=== PATIENT | female | born 1985 | race Caucasian/White ===

== ENCOUNTER 2016-07-28 13:07 | Emergency (ER) | payer MEDICAID ==
[~2016-07-28] VITALS: Ht 167.6 cm; Wt 85.6 kg
[~2016-07-28 13:07] MED LIST: ALBU2.5V2 AEROSOL; AMIT100T2 PO; AZIT250T6 PO; CEPH-583 PO; CETI-115 PO; CLON0.5T23 PO; FLUC150T5 PO; FLUT16SP EA NOSTRIL; FLUT1DIS5 ORAL INH; IPRA3AMP INH; LAMO100T12 PO; METH4TAB3 PO; MONT10TA22 PO; OMEP-122 PO; PRAZ1CAP5 PO; PRED20TA PO
[2016-07-28 13:10] VITALS: Ht 167.6 cm; Wt 85.6 kg
--- OUTSIDE RECORDS SUMMARY | 2016-07-28 13:11 | XMS REPORT ---
Author Ita Kessler [facility] eClinicalWorks Address Unknown Phone Unavailable Care Team Providers Care Design Printing Machine Setter Name Role Phone Ita Stearns CP Unavailable Allergies, Adverse Reactions, Alerts Substance Reaction Event Type Sulfa Info Not Available Drug Allergy Problems Problem Type Condition ICD-9 Code Onset Dates Condition Status Problem Dysthymic disorder 300.4 Active Problem Panic disorder without agoraphobia 300.01 Active Problem Posttraumatic stress disorder 309.81 Active Assessment Panic disorder without agoraphobia 300.01 Active Assessment Posttraumatic stress disorder 309.81 Active Assessment Dysthymic disorder 300.4 Active Medications Medication Code System Code Instructions Start Date End Date Status Dosage Fluconazole [facility] [address]-68 100 MG Orally Once a day 1 tablet Omeprazole [facility] [address]-68 20 MG Orally Once a day 1 capsule Nasonex [facility] [address]-96 50 MCG/ACT Nasally twice a day 2 sprays in each nostril Lamotrigine [facility] [address]-88 100 MG Orally Twice a day July 11, 2014 1 tablet Zyrtec Allergy [facility] [address]-25 10 MG Orally Once a day 1 tablet Prednisone [facility] 0 Oral 1 tab Advair Diskus [facility] [address]-03 500-50 MCG/DOSE Inhalation Twice a day 1 puff Albuterol Sulfate HFA [facility] [address]-90 108 (90 Base) MCG/ACT Inhalation every 4 hrs 2 puffs as needed Tussin [facility] 85061-43277 100 MG/5ML Orally every 4 hrs 10 ml as needed Montelukast Sodium [facility] [address]-67 10 MG Orally Once a day 1 tablet in the evening Fluticasone Propionate [facility] [address]-08 50 MCG/ACT Nasally Once a day 1 spray in each nostril Amitriptyline HCl [facility] [address]-34 100 MG Orally at bedtime October 03, 2014 1 tablet Prazosin HCl [facility] [address]-98 1 MG Orally at bedtime as needed for sleep July 11, 2014 2-3 capsules Qvar [facility] [address]-86 80 MCG/ACT Inhalation Twice a day 1 puff Topiramate [facility] [address]-03 25 MG Orally Once a day 1 tablet at bedtime Clonazepam [facility] [address]-24 0.5 MG Orally up to twice a day as needed for anxiety December 06, 2015 1 tablet Procedures Procedure Coding System Code Date OFFICE VISIT, EST-MOD. COMPLEXITY (25 MIN) CPT-4 09630 Dec 26, 2014 Vital Signs Date/Time: Dec 26, 2014 Height 64.75 in Weight 187.12 lbs Temperature 98.0 F Blood Pressure Diastolic 80 mm Hg Blood Pressure Systolic 120 mm Hg Cardiac Monitoring Heart Rate 82 /min BMI 31.38 Index Respiratory Rate 18 /min Results No Known Results Summary Purpose eClinicalWorks Submission
--- OUTSIDE RECORDS SUMMARY | 2016-07-28 13:11 | XMS REPORT | Continuity of Care Document ---
Author Author [facility] Organization [facility] Address Unknown Phone Unavailable Care Team Providers Care Bilingual Trainer Name Role Phone ASHLY MEAD MD Primary Care Physician [phone] Insurance Providers Payer Name Policy Number Subscriber Name Relationship [facility] [id number] Constance Sandra 19 Self Problems Medical Problems Problem Onset Date Status Right upper quadrant abdominal pain Unknown Active Cystitis Unknown Active Right upper quadrant abdominal pain Unknown Active Medications Medication Dose Route Sig Days/Qty Instructions Order Date Discontinued Date Status Albuterol 11/02/10 Active Alprazolam 2 Mg PO NEEDED 11/02/10 Active Hydrocodone/Acetaminophen 1-2 Tab PO Every 6 Hours PRN PAIN 6 Qty 03/10 Active Social History Social History Problem Response Recorded Date/Time Smoking Status Never smoker 03/10/2014 6:10pm Chewing Tobacco Status No 03/10/2014 6:10pm Hx Substance Use No 03/10/2014 6:10pm Hx Alcohol Use Y OCCASIONAL 03/10/2014 6:10pm Hospital Discharge Instructions No hospital discharge instructions. Plan of Care No plan of care. Functional Status Query Response Date Recorded Physical Hygiene Self March 10, 2014 6:10pm Disabilities None March 10, 2014 6:10pm Devices Used None March 10, 2014 6:10pm Dressing Self March 10, 2014 6:10pm Ambulation Self March 10, 2014 6:10pm Diet Self March 10, 2014 6:10pm Mental Status Alert March 10, 2014 9:05pm Disabilities None March 10, 2014 6:10pm Devices Used None March 10, 2014 6:10pm Physical Hygiene Self March 10, 2014 6:10pm Dressing Self March 10, 2014 6:10pm Ambulation Self March 10, 2014 6:10pm Diet Self March 10, 2014 6:10pm Allergies, Adverse Reactions, Alerts Allergen Type Severity Reaction Status Last Updated Sulfa (Sulfonamide Antibiotics) Allergy Unknown Active 03/10/14 Immunizations Name Given Type Hx Influenza Vaccination Y 02/07 Historical Hx Pneumococcal Vaccination Yes Historical Hx Influenza Vaccination Y 02/07 Historical Vital Signs Acute Vital Signs Vital Response Date/Time Temperature (Fahrenheit) 97.2 deg F (96.8 - 99.1) Temperature (Calculated Celsius) 36.84440 degrees C (36.0 - 37.3) Pulse Rate (adult) 82 bpm (60 - 100) Respiratory Rate 16 breaths/min (10 - 20) O2 Sat by Pulse Oximetry 96 % (90 - 100) Oxygen Flow Rate Blood Pressure 130/75 mm Hg Height 5 ft 6 in Weight 209 lb Body Mass Index 33.0 kg/m^2 Results Test Source Date Result Interp. Ref. Range Comments Alanine Aminotransferase (ALT/SGPT) March 10, 2014 6:09pm 97 U/L H 9- 52 Albumin March 10, 2014 6:09pm 4.3 G/DL N 3.5-5.0 Albumin/Globulin Ratio March 10, 2014 6:09pm 1.4 RATIO N 1.1-2.2 Alkaline Phosphatase March 10, 2014 6:09pm 114 U/L N 38-126 Anion Gap March 10, 2014 6:09pm 12 MEQ/L N 5-15 Aspartate Amino Transf (AST/SGOT) March 10, 2014 6:09pm 58 U/L H 14- 36 BUN/Creatinine Ratio March 10, 2014 6:09pm 20 RATIO N 6-26 Basophils # (Auto) March 10, 2014 6:09pm 0.1 T/MM3 N 0-0.2 Basophils (%) (Auto) March 10, 2014 6:09pm 1.0 % N 0-2 Blood Urea Nitrogen March 10, 2014 6:09pm 14.0 MG/DL N 7-17 Calcium Level March 10, 2014 6:09pm 9.5 MG/DL N 8.4-10.2 Calculated Osmolality March 10, 2014 6:09pm 268 MOSM/KG N 261-280 Carbon Dioxide Level March 10, 2014 6:09pm 25 MEQ/L N 22-30 Chloride Level March 10, 2014 6:09pm 102 MEQ/L N 98-107 Creatinine March 10, 2014 6:09pm 0.7 MG/DL N 0.7-1.2 Eosinophils # (Auto) March 10, 2014 6:09pm 0.4 T/MM3 N 0-0.5 Eosinophils (%) (Auto) March 10, 2014 6:09pm 4.0 % N 0-4 Globulin March 10, 2014 6:09pm 3.1 G/DL N 2.4-3.6 Glucose Level March 10, 2014 6:09pm 88 MG/DL N 65-110 Hematocrit March 10, 2014 6:09pm 45.5 % N 36-46 Hemoglobin March 10, 2014 6:09pm 15.3 GM/DL N 12-16 Human Chorionic Gonadotropin, Qual November 02, 2010 2:30am Negative - Lipase March 10, 2014 6:09pm 37 U/L N 23-300 Lymphocytes # (Auto) March 10, 2014 6:09pm 2.7 T/MM3 N 1-4.8 Lymphocytes (%) (Auto) March 10, 2014 6:09pm 30.4 % N 23-45 Mean Corpuscular Hemoglobin March 10, 2014 6:09pm 30.2 UUG N 26-34 Mean Corpuscular Hemoglobin Concent March 10, 2014 6:09pm 33.6 GM/DL N 31-37 Mean Corpuscular Volume March 10, 2014 6:09pm 89.9 UM3 N 80-100 Mean Platelet Volume March 10, 2014 6:09pm 10.7 UM3 N 9.4-12.4 Monocytes # (Auto) March 10, 2014 6:09pm 0.7 T/MM3 N 0-0.8 Monocytes (%) (Auto) March 10, 2014 6:09pm 7.6 % N 0-9.0 Neutrophils # (Auto) March 10, 2014 6:09pm 5.1 T/MM3 N 1.8-7.7 Neutrophils (%) (Auto) March 10, 2014 6:09pm 56.8 % N 33-66 Platelet Count March 10, 2014 6:09pm 265 T/MM3 N 130-400 Potassium Level March 10, 2014 6:09pm 3.9 MEQ/L N 3.6-5 RDW Standard Deviation March 10, 2014 6:09pm 41.1 FL N 36.9-50.2 Red Blood Count March 10, 2014 6:09pm 5.06 M/MM3 N 4.00-5.20 Sodium Level March 10, 2014 6:09pm 139 MEQ/L N 134-144 Total Bilirubin March 10, 2014 6:09pm 0.50 MG/DL N 0.20-1.30 Total Protein March 10, 2014 6:09pm 7.4 G/DL N 6.3-8.2 Urine Bilirubin March 10, 2014 3:40pm Negative - Has specimen been collected/obtained? Y Urine Blood March 10, 2014 3:40pm Negative - Has specimen been collected/obtained? Y Urine Collection Type March 10, 2014 3:40pm Voided-not cc-midstr - Has specimen been collected/obtained? Y Urine Color March 10, 2014 3:40pm Yellow - Has specimen been collected/obtained? Y Urine Glucose (UA) March 10, 2014 3:40pm Negative - Has specimen been collected/obtained? Y Urine Ketones March 10, 2014 3:40pm Negative - Has specimen been collected/obtained? Y Urine Leukocyte Esterase March 10, 2014 3:40pm Negative - Has specimen been collected/obtained? Y Urine Nitrite March 10, 2014 3:40pm Negative - Has specimen been collected/obtained? Y Urine Protein March 10, 2014 3:40pm Negative - Has specimen been collected/obtained? Y Urine Specific [place] March 10, 2014 3:40pm 1.015 - Has specimen been collected/obtained? Y Urine Turbidity March 10, 2014 3:40pm Sl cloudy - Has specimen been collected/obtained? Y Urine Urobilinogen March 10, 2014 3:40pm 0.2 EU/DL - Has specimen been collected/obtained? Y Urine pH March 10, 2014 3:40pm 6.0 - Has specimen been collected/ obtained? Y White Blood Count March 10, 2014 6:09pm 9.0 T/MM3 N 4.5-11.0 Chemistry Specimen Hemolysis March 10, 2014 6:09pm < 15 0-25 0-25 : No Hemolysis.26-70: Slight Hemolysis - can falsely elevate K and Urine Protein. 71-285: Moderate Hemolysis - can falsely elevate K, Troponin I, CA 19-9, PTH, CSF GLucose, and Urine Protein, and can falsely decrease Phenytoin. 286-999: Gross Hemolysis - can falsely elevate K, Troponin I, CA 19-9, PTH, CSF Glucose, and Urine Protine, and can falsely decrease Phenytoin. Recommend specimen recollection. Urinalysis Comment March 10, 2014 3:40pm Microscopic not ind. - Has specimen been collected/obtained? Y Turbidity March 10, 2014 6:09pm < 20 0-20 Glomerular Filtration Rate Calc March 10, 2014 6:09pm 100 - Immature Granulocyte # (Auto) March 10, 2014 6:09pm 0.02 T/MM3 N 0.00 -0.03 Immature Granulocyte % (Auto) March 10, 2014 6:09pm 0.2 % N 0.0-0.5 Icterus Index March 10, 2014 6:09pm < 2 0-7 Urine Microscopic Not Indicated November 02, 2010 5:29am Not indicated - Has specimen been collected/obtained? Y Blood Culture Blood November 02, 2010 2:30am Propionibacterium Acnes Procedures No known history of procedures. Encounters Encounter Location Date/Time Departed Emergency Room [facility] 03/10/14 3:19pm Recent Diagnosis
--- OUTSIDE RECORDS SUMMARY | 2016-07-28 13:11 | XMS REPORT ---
Author Author Homer Aldridge [facility] eClinicalWorks Address Unknown Phone Unavailable Care Team Providers Care Molding Manager Name Role Phone Homer Aldridge CP Unavailable Allergies No Known Allergies Problems Problem Type Condition Code Onset Dates Condition Status Problem Dysthymic disorder F34.1 Active Problem Panic disorder [episodic paroxysmal anxiety] without agoraphobia F41.0 Active Problem Post-traumatic stress disorder, chronic F43.12 Active Medications Medication Code System Code Instructions Start Date End Date Status Dosage Clonazepam [facility] [address]-50 0.5 MG Orally up to twice a day as needed for anxiety Jul 05, 2016 1 tablet Results No Known Results Summary Purpose eClinicalWorks Submission
--- OUTSIDE RECORDS SUMMARY | 2016-07-28 13:11 | XMS REPORT ---
Author Author Homer Aldridge [facility] eClinicalWorks Address Unknown Phone Unavailable Care Team Providers Care Animal Cop Name Role Phone Homer Aldridge CP Unavailable Allergies, Adverse Reactions, Alerts Substance Reaction Event Type Sulfa Info Not Available Drug Allergy Seasonal allergies Info Not Available Non Drug Allergy Problems Problem Type Condition Code Onset Dates Condition Status Problem Dysthymic disorder F34.1 Active Problem Panic disorder [episodic paroxysmal anxiety] without agoraphobia F41.0 Active Problem Post-traumatic stress disorder, chronic F43.12 Active Assessment Dysthymic disorder F34.1 Active Assessment Post-traumatic stress disorder, chronic F43.12 Active Medications Medication Code System Code Instructions Start Date End Date Status Dosage Prazosin HCl [facility] [address]-26 1 MG Orally at bedtime as needed for sleep July 11, 2014 2-3 capsules Fluconazole [facility] [address]-65 100 MG Orally Once a day, as needed 1 tablet Zyrtec Allergy [facility] [address]-40 10 MG Orally Once a day 1 tablet Prednisone [facility] 0 Oral 1 tab Advair Diskus [facility] [address]-05 500-50 MCG/DOSE Inhalation Twice a day 1 puff Montelukast Sodium [facility] [address]-41 10 MG Orally Once a day 1 tablet in the evening Albuterol Sulfate HFA [facility] [address]-00 108 (90 Base) MCG/ACT Inhalation every 4 hrs 2 puffs as needed Fluticasone Propionate [facility] [address]-06 50 MCG/ACT Nasally Once a day 1 spray in each nostril Tussin [facility] [address] 100 MG/5ML Orally every 4 hrs 10 ml as needed Spiriva Respimat [facility] [address]-92 2.5mcg nasal daily Jan 21, 2016 as directed Spiriva Respimat [facility] [address]-13 2.5mcg nasal daily not defined Nasonex [facility] [address]-68 50 MCG/ACT Nasally twice a day 2 sprays in each nostril Lamotrigine [facility] [address]-71 100 MG Orally as directed July 11, 2014 1 tablet in the AM and 1 1/2 tablets at bedtime Clonazepam [facility] [address]-41 0.5 MG Orally up to twice a day as needed for anxiety Jul 05, 2016 1 tablet Omeprazole [facility] [address]-05 20 MG Orally Once a day 1 capsule Procedures Procedure Coding System Code Date OFFICE VISIT, EST-LOW COMPLEXITY (15 MIN.) CPT-4 80720 Jan 19, 2016 Vital Signs Date/Time: Jan 19, 2016 Temperature 97.7 F Height 64.75 in Weight 205 lbs Blood Pressure Diastolic 80 mm Hg Blood Pressure Systolic 116 mm Hg Cardiac Monitoring Heart Rate 82 /min BMI 34.37 Index Respiratory Rate 20 /min Results No Known Results Summary Purpose eClinicalWorks Submission
--- OUTSIDE RECORDS SUMMARY | 2016-07-28 13:11 | XMS REPORT | Continuity of Care Document ---
Author Author [facility] Organization [facility] Address Unknown Phone Unavailable Care Team Providers Care Painter Plate Name Role Phone ASHLY MEAD MD Primary Care Physician [phone] Insurance Providers Payer Name Policy Number Subscriber Name Relationship [facility] [employer] [facility] [id number] Constance Sandra 19 Self Problems Medical Problems Problem Onset Date Status Right upper quadrant abdominal pain Unknown Active Cystitis Unknown Active Right upper quadrant abdominal pain Unknown Active Pain, dental Unknown Active Dental infection Unknown Active Pain, dental Unknown Active Lumbar strain Unknown Active Lumbar strain Unknown Active Medications Medication Dose Route Sig Days/Qty Instructions Order Date Discontinued Date Status Albuterol 11/02/10 Active Clonazepam 1 Tab PO NEEDED For ANXIETY/AIRHUNGER/AGITATION Active Fluticasone/Salmeterol 1 Puff ORAL INH RESP.TX TWICE A DAY 07/29/14 Active Butalb/Acetaminophen/Caffeine PO NEEDED 6 Qty 07/29/14 Active Amoxicillin 2 Tab PO TWICE A DAY 40 Qty 07/29/14 Active Prazosin HCl 1 Mg PO TWICE A DAY 60 Qty 07/29/14 Active Lamotrigine 3 Tab PO BEDTIME 80 Qty 07/29/14 Active Cyclobenzaprine HCl 10 Mg PO THREE TIMES A DAY PRN MUSCLE SPASM 40 Qty 07/29/14 Active Diclofenac Sodium 75 Mg PO TWICE DAILY WITH MEALS 20 Qty 07/29/14 Active Social History Social History Problem Response Recorded Date/Time Hx Substance Use No 07/29/2014 7:59am Hx Alcohol Use Y OCCASIONAL 07/29/2014 7:59am Tobacco Usage none 03/10/2014 7:12pm Query Response Start Date Stop Date Smoking Status Never smoker Hospital Discharge Instructions No hospital discharge instructions. Plan of Care No plan of care. Functional Status Query Response Date Recorded Physical Hygiene Self July 29, 2014 7:59am Disabilities Visual July 29, 2014 7:59am Devices Used Glasses July 29, 2014 7:59am Dressing Self July 29, 2014 7:59am Ambulation Self July 29, 2014 7:59am Diet Self July 29, 2014 7:59am Mental Status Alert Oriented July 29, 2014 7:59am Disabilities Visual July 29, 2014 7:59am Devices Used Glasses July 29, 2014 7:59am Physical Hygiene Self July 29, 2014 7:59am Dressing Self July 29, 2014 7:59am Ambulation Self July 29, 2014 7:59am Diet Self July 29, 2014 7:59am Allergies, Adverse Reactions, Alerts Allergen Type Severity Reaction Status Last Updated Sulfa (Sulfonamide Antibiotics) Allergy Unknown Active 07/29/14 Immunizations Name Given Type Hx Influenza Vaccination Y 05/2014 Historical Hx Pneumococcal Vaccination Yes Historical Hx Tetanus, Diptheria, Pertussis Y 05/2014 Historical Hx Influenza Vaccination Y 05/2014 Historical Hx Tetanus, Diptheria, Pertussis Y 05/2014 Historical Vital Signs Acute Vital Signs Vital Response Date/Time Temperature (Fahrenheit) 97.1 deg F (96.8 - 99.1) Temperature (Calculated Celsius) 36.30117 degrees C (36.0 - 37.3) Pulse Rate (adult) 108 bpm (60 - 100) Respiratory Rate 18 breaths/min (10 - 20) O2 Sat by Pulse Oximetry 97 % (90 - 100) Blood Pressure 127/70 mm Hg Height 5 ft 6 in Weight 207 lb Body Mass Index 33.0 kg/m^2 Results [...] Has specimen been collected/obtained? Y Urine Specific [place] March 10, 2014 3:40pm 1.015 - Has [...] November 02, 2010 2:30am Propionibacterium Acnes Procedures Procedure Status Date Provider(s) THER/PROPH/DIAG INJ SC/IM completed 06/01/14 EMERGENCY DEPT VISIT completed 06/01/14 Encounters Encounter Location Date/Time Departed Emergency Room [facility] 07/29/14 7:39am Departed Emergency Room [facility] 06/01/14 11:48am Recent Diagnosis
--- OUTSIDE RECORDS SUMMARY | 2016-07-28 13:11 | XMS REPORT ---
Author Ita Kessler Organization eClinicalWorks Address Unknown Phone Unavailable Care Team Providers Care Western T[employer] Assembly Line Worker Name Role Phone Ita Stearns CP Unavailable Allergies No Known Allergies Problems Problem Type Condition Code Onset Dates Condition Status Problem Dysthymic disorder F34.1 Active Problem Panic disorder [episodic paroxysmal anxiety] without agoraphobia F41.0 Active Problem Post-traumatic stress disorder, chronic F43.12 Active Medications Medication Code System Code Instructions Start Date End Date Status Dosage Lamotrigine [facility] [address]-81 100 MG Orally as directed July 11, 2014 1 tablet in the AM and 1 1/2 tablets at bedtime Results No Known Results Summary Purpose eClinicalWorks Submission
--- OUTSIDE RECORDS SUMMARY | 2016-07-28 13:11 | XMS REPORT ---
Author Author Ita Stearns [facility] eClinicalWorks Address Unknown Phone Unavailable Care Team Providers Care Funeral Home Makeup Artist Name Role Phone Ita Stearns CP Unavailable Allergies No Known Allergies Problems Problem Type Condition Code Onset Dates Condition Status Problem Dysthymic disorder 300.4 Active Problem Panic disorder without agoraphobia 300.01 Active Problem Posttraumatic stress disorder 309.81 Active Medications Medication Code System Code Instructions Start Date End Date Status Dosage Clonazepam [facility] [address]-46 0.5 MG Orally once a day as needed for anxiety 1 tablet Results No Known Results Summary Purpose eClinicalWorks Submission
--- OUTSIDE RECORDS SUMMARY | 2016-07-28 13:11 | XMS REPORT | Continuity of Care Document ---
Author Author [facility] Organization [facility] Address Unknown Phone Unavailable Care Team Providers Care Supervisor Electronics Testing Name Role Phone ASHLY MEAD MD Primary Care Physician [phone] Insurance Providers Guarantor Constance Sandra Address [address] [address] Email [email or web address] Payer [facility] Plan Policy Number [id number] Subscriber's Name Constance Sandra Karlo Relationship 18 Self Effective Date 15 Expiration Date 15 Chief Complaint and Reason for Visit Chief Complaint Adult-Asthma Reason for Visit Asthma exacerbation Problems Active Problems Medical Problem Onset Date Status Closed fracture of second toe of right foot Unknown Acute Cystitis Unknown Acute Dental infection Unknown Acute Lumbar strain Unknown Acute Lumbar strain Unknown Acute Pain, dental Unknown Acute Pain, dental Unknown Acute Right upper quadrant abdominal pain Unknown Acute Right upper quadrant abdominal pain Unknown Acute Viral respiratory illness Unknown Acute Past Problems Medical Problem Onset Date Asthma exacerbation Unknown Medications Current Home Medications Medication Dose Units Route Directions Days Qty Instructions Start Date Albuterol Sulfate 2.5 Mg/0.5 Ml Vial.neb 1 Vial Aerosol Tx. Every 4-6 Hours for Asthma 120 Vial 05/11/15 Amitriptyline Hcl 100 Mg Tablet 100 Mg Oral Bedtime 02/20/15 Azithromycin 250 Mg Tablet 250 Mg Oral Daily 05/11/15 Cephalexin (Keflex) 500 Mg Capsule 1 Cap Oral Four Times Daily for Upper Respiratory Infection 10 Days 05/11/15 Cetirizine Hcl (Zyrtec) 10 Mg Tablet 10 Mg Oral Daily 05/11/15 Clonazepam 0.5 Mg Tab.rapdis 1 Tab Oral Daily as needed for Anxiety 06/01/14 Fluconazole 150 Mg Tablet 150 Mg Oral Daily as needed for Thrush 05/11/15 Fluticasone Propionate (Fluticasone Prop 50 Mcg/Actuation Nasal [place]) 120 [place]/16 G [place] 1 [place] Inhalation Twice A Day 05/11/15 Fluticasone/Salmeterol (Advair 500-50 Diskus) 1 Disk W/Dev Disk.w.dev 1 Puff Oral Inhalation Resp.tx Twice A Day 07/29/14 Ipratropium/Albuterol Sulfate (Iprat-Albut 0.5-3(2.5) Mg/3 Ml) 3 Ml Ampul.neb 1 Vial Inhalation Every 3-4 Hours as needed for Shortness Of Air Lamotrigine 100 Mg Tablet 100 Mg Oral Twice A Day 05/11/15 Methylprednisolone (Medrol) 4 Mg Tab.ds.pk 4 Mg Oral As Directed for Asthma 1 05/11/15 Montelukast Sodium (Singulair) 10 Mg Tablet 10 Mg Oral Bedtime Omeprazole 20 Mg Tablet.dr 20 Mg Oral Daily 02/20/15 Prazosin Hcl 1 Mg Capsule 2-3 Cap Oral Bedtime 07/29/14 Prednisone 20 Mg Tablet 20 Mg Oral Twice Daily With Meals 10 Tablet Take 1 tablet, by mouth, 2 times a day with meals. 11/10/15 Social History Social History Problem Response Recorded Date/Time Onset Date Status Hx Substance Use No 11/10/2015 10:26pm Not Applicable Not Applicable Hx Alcohol Use Y OCCASIONAL 11/10/2015 10:26pm Not Applicable Not Applicable Query Response Start Date Stop Date Smoking Status Never smoker Hospital Discharge Instructions No hospital discharge instructions. Plan of Care Discharge Date 11/10/15 11:25pm Disposition 01 DISCHARGED HOME, SELF-CARE Condition at Discharge Stable Instructions/Education Provided DI for Asthma -- Adult Prescriptions See Medication Section Referrals ASHLY MEAD MD Address: [address] [place] [id number] MONTANA WALTER APRN Address: [address] [place] [phone] Additional Instructions/Education Continue with the nebulizer treatments at home. I do want you to follow up this week for reevaluation at your primary care provider's office. Will go ahead and resume the Prednisone, take the next dose in the morning and then take daily. If you should have any increased shortness of breath or wheezing however I do want you to return to the Emergency Room. Care Plan and Goals Physician Care Plan Problem:Asthma Exacerbation Goal: Follow up with primary care provider Instructions: Take medications and follow care plan as discussed/written Functional Status No functional status results. Allergies, Adverse Reactions, Alerts Allergen Type Severity Reaction Status Last Updated Sulfa (Sulfonamide Antibiotics) Allergy Unknown Active 05/11/15 Immunizations Query Response on File Recorded Date/Time Hx Influenza Vaccination Y 02/1810/21/14 9:19am Hx Pneumococcal Vaccination Yes 10/21/14 9:19am Hx Tetanus, Diptheria, Pertussis Y 05/201410/21/14 9:19am Hx Influenza Vaccination Y 02/1810/21/14 9:19am Hx Tetanus, Diptheria, Pertussis Y 05/201410/21/14 9:19am Influenza Vaccine Hx APR 2015 11/10/15 10:26pm Vital Signs Acute Vital Signs Vital Response Date/Time Temperature (Fahrenheit) 98.0 deg F (96.8 - 99.1) 11/10/2015 11:25pm Temperature (Calculated Celsius) 36.60538 degrees C (36.0 - 37.3) 11/10/2015 11:25pm Pulse Rate (adult) 120 bpm (60 - 100) 11/10/2015 11:25pm Respiratory Rate 20 breaths/min (10 - 20) 11/10/2015 11:25pm O2 Sat by Pulse Oximetry 92 % (90 - 100) 11/10/2015 11:25pm Blood Pressure 130/68 mm Hg 11/10/2015 11:25pm Blood Pressure 130/68 mm Hg 11/10/2015 11:25pm Height (Feet) 5 feet 11/10/2015 10:13pm Height (Inches) 6.00 inches 11/10/2015 10:13pm Weight (Kilograms) 98.800 kg 11/10/2015 10:13pm Body Mass Index (BMI) 35.0 11/10/2015 10:13pm Results Laboratory Results Test Name Result Units Flags Reference Collection Date/Time Result Date/ Time Comments White Blood Count 12.6 T/MM3 H 4.5-11.0 11/10/2015 10:35pm 11/10/2015 10 :43pm Red Blood Count 4.76 M/MM3 4.00-5.20 11/10/2015 10:35pm 11/10/2015 10: 43pm Hemoglobin 14.2 GM/DL 12-16 11/10/2015 10:35pm 11/10/2015 10:43pm Hematocrit 43.3 % 36-46 11/10/2015 10:35pm 11/10/2015 10:43pm Mean Corpuscular Volume 91.0 UM3 80-100 11/10/2015 10:35pm 11/10/2015 10:43pm Mean Corpuscular Hemoglobin 29.8 UUG 26-34 11/10/2015 10:35pm 2015 10:43pm Mean Corpuscular Hemoglobin Concent 32.8 GM/DL 31-37 11/10/2015 10:35pm 11/10/2015 10:43pm RDW Standard Deviation 44.5 FL 36.9-50.2 11/10/2015 10:35pm 11/10/2015 10:43pm Platelet Count 300 T/MM3 130-400 11/10/2015 10:35pm 11/10/2015 10:43pm Mean Platelet Volume 10.3 UM3 9.4-12.4 11/10/2015 10:35pm 11/10/2015 10 :43pm Neutrophils (%) (Auto) 53.2 % 33-66 11/10/2015 10:35pm 11/10/2015 10: 43pm Lymphocytes (%) (Auto) 31.7 % 23-45 11/10/2015 10:35pm 11/10/2015 10: 43pm Monocytes (%) (Auto) 5.6 % 0-9.0 11/10/2015 10:35pm 11/10/2015 10:43pm Eosinophils (%) (Auto) 7.9 % H 0-4 11/10/2015 10:35pm 11/10/2015 10: 43pm Basophils (%) (Auto) 1.0 % 0-2 11/10/2015 10:35pm 11/10/2015 10:43pm Immature Granulocyte % (Auto) 0.6 % H 0.0-0.5 11/10/2015 10:35pm 2015 10:43pm Absolute Neutrophils (auto) 6.7 T/MM3 1.8-7.7 11/10/2015 10:35pm 2015 10:43pm Absolute Lymphocytes (auto) 4.0 T/MM3 1-4.8 11/10/2015 10:35pm 2015 10:43pm Absolute Monocytes (auto) 0.7 T/MM3 0-0.8 11/10/2015 10:35pm 2015 10:43pm Absolute Eosinophils (auto) 1.0 T/MM3 H 0-0.5 11/10/2015 10:35pm 2015 10:43pm Absolute Basophils (auto) 0.1 T/MM3 0-0.2 11/10/2015 10:35pm 2015 10:43pm Absolute Immature Granulocyte (auto 0.08 T/MM3 H 0.00-0.03 11/10/2015 10: 35pm 11/10/2015 10:43pm Icterus Index < 2 0-7 11/10/2015 10:35pm 11/10/2015 10:50pm Chemistry Specimen Hemolysis 22 0-25 11/10/2015 10:35pm 11/10/2015 10 :50pm 0-25: Specimen Exhibited No Hemolysis. Turbidity < 20 0-20 11/10/2015 10:35pm 11/10/2015 10:50pm Sodium Level 140 MEQ/L 134-144 11/10/2015 10:35pm 11/10/2015 10:50pm Potassium Level 3.6 MEQ/L 3.6-5 11/10/2015 10:35pm 11/10/2015 10:50pm Chloride Level 106 MEQ/L 98-107 11/10/2015 10:35pm 11/10/2015 10:50pm Carbon Dioxide Level 23 MEQ/L 22-30 11/10/2015 10:35pm 11/10/2015 10: 50pm Anion Gap 11 MEQ/L 5-15 11/10/2015 10:35pm 11/10/2015 10:50pm Blood Urea Nitrogen 10.0 MG/DL 7-17 11/10/2015 10:35pm 11/10/2015 10: 50pm Creatinine 0.8 MG/DL 0.7-1.2 11/10/2015 10:35pm 11/10/2015 10:50pm BUN/Creatinine Ratio 13 RATIO 6-26 11/10/2015 10:35pm 11/10/2015 10: 50pm Glomerular Filtration Rate Calc 85 11/10/2015 10:35pm 11/10/2015 10 :50pm Glucose Level 124 MG/DL H 65-110 11/10/2015 10:35pm 11/10/2015 10:50pm Calculated Osmolality 269 MOSM/KG 261-280 11/10/2015 10:35pm 2015 10:50pm Calcium Level 9.7 MG/DL 8.4-10.2 11/10/2015 10:35pm 11/10/2015 10:50pm Procedures No known history of procedures. Encounters Encounter Location Arrival/Admit Date Discharge/Depart Date Attending Provider Departed Emergency Room [facility] 11/10/15 10:09pm 11/10/15 11: 25pm KENNETH FELIPE MD Recent Diagnosis
--- OUTSIDE RECORDS SUMMARY | 2016-07-28 13:11 | XMS REPORT | Summary of Care ---
Author Author Fito Bar M.D. Organization Unknown Address Unknown Phone Unavailable Care Team Providers Care Acoustical Logging Engineer Name Role Phone Siddhartha, Jose Unavailable Unavailable Functional Status Name Dates Details Functional status health issues are not documented Status: Name Dates Details Cognitive status health issues are not documented Status: Problems Name Dates Details Asthma (493.90, J45.909) Status: Active Medications Name Dates Details Medication not documented Allergies and Adverse Reactions Name Dates Details Sulfa Drugs (Allergy) Status: Active Procedures Procedure Dates Details Procedures not documented Immunization Name Dates Details Immunizations not documented Social History Name Dates Details Unknown if ever smoked Vital Signs Date Test Result Details No Known Vitals to report Results Date Description Value Details 11:11 CBC w/ Auto Diff 7150 WBC 12.0 K/uL (Above high threshold) Range: 4.5-11.0 RBC 4.89 mil/uL Range: 3.60-5.00 HGB 15.0 g/dL Range: 12.0-16.0 HCT 45.2 % Range: 36.0-48.0 MCV 92.4 fL Range: 80.0-99.0 MCH 30.6 pg Range: 27.3-32.5 MCHC 33.1 % Range: 32.0-36.0 RDW 14.4 % Range: 11.6-14.8 PLATELETS 291 K/uL Range: 150-400 MPV 7.5 fL Range: 6.0-11.0 %NEUTRO 77.8 % Range: 37.0-80.0 %LYMPHS 18.0 % Range: 13.0-50.0 %MONO 2.6 % Range: 0.0-12.0 %EOS 0.6 % Range: 0.0-7.0 %BASO 0.3 % Range: 0.0-2.5 %ZACHARY 0.7 % Range: 0.0-5.0 NEUTRO 9.4 K/uL (Above high threshold) Range: 2.0-6.9 LYMPHS 2.2 K/uL Range: 0.6-3.4 MONOS 0.3 K/uL Range: 0.0-0.9 EOS 0.1 K/uL Range: 0.0-0.7 BASO 0.0 K/uL Range: 0.0-0.2 11:34 Comprehensive Metabolic Panel 1212 SODIUM 140 mmol/L Range: 133-144 POTASSIUM 3.9 mmol/L Range: 3.5-5.1 CHLORIDE 102 mmol/L Range: 98-110 CARBON DIOXIDE 24.8 mmol/L Range: 23.0-33.0 ANION GAP 13 mmol/L Range: 6-16 BUN 10 mg/dL Range: 7-18 CREATININE, SERUM 0.81 mg/dL Range: 0.55-1.02 Comments: Please note new reference ranges effective 2014.----- BUN:CREATININE RATIO 12 EST GFR, >60 ml/min Range: >60 EST GFR, NON-AFR GHA[place]IAN >60 ml/min Range: >60 Comments: EST GFR is reported in ml/min per 1.73 m2 of body surface area. For -Senegalese, please multiple result by 1.2.----- GLUCOSE 101 mg/dL (Above high threshold) Range: 70-100 ALK PHOSPHATASE 95 U/L Range: 46-116 TOTAL BILIRUBIN 0.20 mg/dL Range: 0.20-1.00 AST 12 U/L Range: 8-35 ALT 37 U/L Range: 14-59 Comments: Please note new reference ranges. Effective 07/17/2014.----- ALBUMIN 3.7 g/dL Range: 3.4-5.0 TOTAL PROTEIN 7.2 g/dL Range: 6.4-8.2 A/G RATIO 1.1 units Range: 1.0-1.8 CALCIUM 9.0 mg/dL Range: 8.5-10.1 11:49 THYROID STIM. HORMONE 3602 THYROID STIM. HORMONE 0.206 uIU/mL (Below low threshold) Range: 0.550- 4.780 Comments: PLEASE NOTE: Patients undergoing fuorescein dye angiography within the last 72 hours can produce falsely depressed TSH values with current methodology.No established reference ranges for infants and children <2 years of age----- Plan of Care Name Dates Details Planned Observations Planned Goals not documented Planned Encounters Appointment; Provider: Fito Bar M.D. On 14:00 Instructions Name Dates Details Instructions not documented Encounters Result Review; Encounter Diagnosis: Problem not documented On 12:15
--- OUTSIDE RECORDS SUMMARY | 2016-07-28 13:12 | XMS REPORT | Summary of Care ---
Author Author Fito Bar M.D. Unknown Address Unknown Phone Unavailable Care Team Providers Care Outsole Cutter Machine Name Role Phone Jose Carl PENG Unavailable Functional Status Functional Status Health Issues* Name Dates Details Functional status health issues are not documented Status: Cognitive Status Health Issues* Name Dates Details Cognitive status health issues are not documented Status: Problems Name Dates Details Asthma (493.90, J45.909) Status: Active Medications Name Dates Details Medication not documented Allergies and Adverse Reactions Name Dates Details Sulfa Drugs Status: Active Procedures Procedure Dates Details ECG/ EKG ([facility]) Pendin25-Sep-2015 XRay CHEST-PA & LAT Ordered:25-Sep-2015 Immunization Name Dates Details Immunizations not documented Social History Smoking Status* Unknown if ever smoked Vital Signs Date Test Result Details No Known Vitals to report Results Date Description Value Details Results not documented Plan of Care Planned Observations* Name Dates Details Planned Goals not documented Goal Planned Encounters* Appointment; Provider: Fito Bar On 14:00 Instructions * Instructions not documented Encounters No Encounter data documented Encounter Diagnosis: Problem not documented On
--- OUTSIDE RECORDS SUMMARY | 2016-07-28 13:12 | XMS REPORT ---
Author Author Ita Stearns [facility] eClinicalWorks Address Unknown Phone Unavailable Care Team Providers Care Medical Office Receptionist Assistant Name Role Phone Ita Stearns CP Unavailable [...] Date End Date Status Dosage Prazosin HCl [facility] [address]-52 1 MG Orally at bedtime as needed for sleep July 11, 2014 2-3 capsules Lamotrigine [facility] [address]-52 100 MG Orally Twice a day July 11, 2014 1 tablet Nasonex [facility] [address]-31 50 MCG/ACT Nasally twice a day 2 sprays in each nostril Advair Diskus [facility] [address]-15 500-50 MCG/DOSE Inhalation Twice a day 1 puff Clonazepam [facility] [address]-41 0.5 MG Orally up to twice a day as needed for anxiety 1 tablet Albuterol Sulfate HFA [facility] [address]-96 108 (90 Base) MCG/ACT Inhalation every 4 hrs 2 puffs as needed Zyrtec Allergy [facility] [address]-49 10 MG Orally Once a day 1 tablet Amitriptyline HCl [facility] [address]-66 25 MG Orally at bedtime October 03, 2014 1-2 tablets Procedures Procedure Coding System Code Date OFFICE VISIT, EST-MOD. COMPLEXITY (25 MIN) CPT-4 08256 October 28, 2014 Vital Signs Date/Time: October 28, 2014 Height 64.75 in Weight 190.12 lbs Temperature 97.5 F Blood Pressure Diastolic 82 mm Hg Blood Pressure Systolic 132 mm Hg Cardiac Monitoring Heart Rate 80 /min BMI 31.88 Index Respiratory Rate 16 /min Results No Known Results Summary Purpose eClinicalWorks Submission
--- OUTSIDE RECORDS SUMMARY | 2016-07-28 13:12 | XMS REPORT ---
Author Author Ita Stearns Organization [employer] Address Unknown Phone Unavailable Care Team Providers Care Highway Technician Name Role Phone Ita Stearns CP Unavailable Allergies, Adverse Reactions, Alerts Substance Reaction Event Type Sulfa Info Not Available Drug Allergy Problems Problem Type Condition Code Onset Dates Condition Status Problem Dysthymic disorder 300.4 Active Problem Panic disorder without agoraphobia 300.01 Active Problem Posttraumatic stress disorder 309.81 Active Assessment Panic disorder without agoraphobia 300.01 Active Assessment Posttraumatic stress disorder 309.81 Active Assessment Dysthymic disorder 300.4 Active Medications Medication Code System Code Instructions Start Date End Date Status Dosage Advair Diskus [facility] [address]-63 500-50 MCG/DOSE Inhalation Twice a day 1 puff Albuterol Sulfate HFA [facility] [address]-68 108 (90 Base) MCG/ACT Inhalation every 4 hrs 2 puffs as needed Zyrtec Allergy [facility] [address]-53 10 MG Orally Once a day 1 tablet Clonazepam [facility] [address]-40 0.5 MG Orally once a day as needed for anxiety 1 tablet Lamotrigine [facility] [address]-90 150 MG Orally Once a day July 11, 2014 1 tablet Amitriptyline HCl [facility] [address]-48 25 MG Orally at bedtime October 03, 2014 1-2 tablets Prazosin HCl [facility] [address]-87 1 MG Orally at bedtime as needed for sleep July 11, 2014 2-3 capsules Nasonex [facility] [address]-05 50 MCG/ACT Nasally twice a day 2 sprays in each nostril Procedures Procedure Coding System Code Date OFFICE VISIT, EST-MOD. COMPLEXITY (25 MIN) CPT-4 19818 October 03, 2014 Vital Signs Date/Time: October 03, 2014 Height 64.75 in Weight 189.4 lbs Temperature 98.0 F Blood Pressure Diastolic 78 mm Hg Blood Pressure Systolic 112 mm Hg Cardiac Monitoring Heart Rate 82 /min BMI 31.76 Index Respiratory Rate 18 /min Results No Known Results Summary Purpose eClinicalWorks Submission
--- OUTSIDE RECORDS SUMMARY | 2016-07-28 13:12 | XMS REPORT | Summary of Care ---
Author Author Fito Bar M.D. Organization Unknown Address Unknown Phone Unavailable Care Team Providers Care Casino Slot Supervisor Name Role Phone Jennifer Hadley Unavailable Unavailable Wilmar Bar M.D. 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 Fito Bar M.D. Start Active ProAir HFA 108 (90 Base) MCG/ACT Inhalation Aerosol Solution INHALE 1 TO 2 PUFFS EVERY 4 TO 6 HOURS NEEDED. * Refills: 0 Fito Bar M.D. Start Active Amitriptyline HCl - 25 MG Oral Tablet TAKE 1 TABLET AT BEDTIME. * Refills: 0 Fito Bar M.D. Start Active ClonazePAM 0.5 MG Oral Tablet TAKE 1 TABLET AT BEDTIME NEEDED. * Refills: 0 Fito Bar M.D. Start Active Diflucan 100 MG Oral Tablet TAKE DIRECTED. * Refills: 0 Fito Bar M.D. Start Active Ipratropium-Albuterol 0.5-2.5 (3) MG/3ML Inhalation Solution USE 1 UNIT DOSE IN NEBULIZER EVERY 4 HOURS NEEDED. * Refills: 0 Fito Bar M.D. Start Active Fioricet 50-300-40 MG Oral Capsule 1 capsule every 6 hours as needed * Refills: 0 Dipika Vick, Fito Urban * Start Active Fluticasone Propionate 50 MCG/ACT Nasal Suspension * Refills: 0 Dipika Vikc, Fito Urban * Start Active LaMICtal 100 MG Oral Tablet TAKE 1 TABLET DAILY. * Refills: 0 Dipika Vick, Fito Urban * Start Active Milk of Magnesia 400 MG/5ML Oral Suspension * Refills: 0 Dipika Vick, Fito Urban * Start Active MiraLax Oral Powder * Refills: 0 Diipka Vick, Fito Urban * Start Active Omeprazole 20 MG Oral Capsule Delayed Release TAKE 1 CAPSULE DAILY. * Refills: 0 Dipika Vick, Fito Urban * Start Active Promethazine-Codeine 6.25-10 MG/5ML Oral Syrup * Refills: 0 Fito Bar M.D. * Start Active Senokot 8.6 MG Oral Tablet TAKE DIRECTED. * Refills: 0 Fito Bar M.D. * Start Active Singulair 10 MG Oral Tablet * Refills: 0 Dipika Vick, Fito Urban * Start Active ZyrTEC Allergy 10 MG Oral Tablet * Refills: 0 Dipika Vick, Fito Urban * Start Active Spiriva Respimat 2.5 MCG/ACT Inhalation Aerosol Solution INHALE 2 PUFFS ONCE DAILY * Quantity: 1 Refills: 11 Ky P.A., Jennifer * Start Active 4 GM Inhaler Allergies and Adverse Reactions Name Dates Details Sulfa Drugs (Allergy) Status: Active Procedures Procedure Dates Details Procedures not documented Immunization Name Dates Details Immunizations not documented Social History Name Dates Details Unknown if ever smoked Vital Signs Date Test Result Details 14:09 BP Systolic 118 mm[Hg] Status: Comments: Location: ; Position: BP Diastolic 84 mm[Hg] Status: Comments: Location: ; Position: Heart Rate 103 /min Status: Comments: Location: ; Height 66.5 in Status: Weight 218 lb Status: Physical Findings 98 Status: Comments: O2 Saturation Body Mass Index Calculated 34.66 kg/m2 Status: Body Surface Area Calculated 2.09 m2 Status: Results Date Description Value Details 11:11 CBC [...] >60 ml/min Range: >60 EST GFR, NON-AFR [place] >60 ml/min Range: >60 Comments: EST GFR is reported in ml/min per 1.73 m2 of body surface area. For -Japanese, please multiple result by 1.2.----- GLUCOSE 101 [...] infants and children <2 years of age----- 12:56 ECG/ EKG ([facility]) Electro CardioGram Plan of Care Name Dates Details Planned Observations Planned Goals not documented Planned Encounters Appointment; Provider: Fito Bar M.D. On 17-Dec-2015 13:45 Interventions Provided Medication Changes* Spiriva Respimat 2.5 MCG/ACT Inhalation Aerosol Solution - Start Labs/Procedures/Imaging* XRay CHEST-PA & LAT; To be Done: 03 Dec 2015 Instructions Name Dates Details Instructions not documented Encounters Appointment; Fito Bar M.D. Encounter Diagnosis: Problem not documented On 14:00
--- OUTSIDE RECORDS SUMMARY | 2016-07-28 13:12 | XMS REPORT | Summary of Care ---
Author Author Fito Bar M.D. Unknown Address Unknown Phone Unavailable Care Team Providers Care Pre Kindergarten Teacher Name Role Phone Jose Carl PENG Unavailable [...]
--- OUTSIDE RECORDS SUMMARY | 2016-07-28 13:12 | XMS REPORT ---
Author Author Ita Stearns [facility] eClinicalWorks Address Unknown Phone Unavailable Care Team Providers Care Netsuite Developer Name Role Phone Ita Stearns CP Unavailable Allergies No Known Allergies Problems Problem Type Condition ICD-9 Code Onset Dates Condition Status Problem Dysthymic disorder 300.4 Active Problem Panic disorder without agoraphobia 300.01 Active Problem Posttraumatic stress disorder 309.81 Active Medications Medication Code System Code Instructions Start Date End Date Status Dosage Prazosin HCl [facility] [address]-10 1 MG Orally at bedtime as needed for sleep July 11, 2014 3-4 capsules Results No Known Results Summary Purpose eClinicalWorks Submission
--- OUTSIDE RECORDS SUMMARY | 2016-07-28 13:12 | XMS REPORT ---
Author Author Homer Aldridge [facility] eClinicalWorks Address Unknown Phone Unavailable Care Team Providers Care Field Horticultural Specialty Grower Name Role Phone Homer Aldridge CP Unavailable Allergies No Known Allergies Problems Problem Type Condition Code Onset Dates Condition Status Problem Dysthymic disorder F34.1 Active Problem Panic disorder [episodic paroxysmal anxiety] without agoraphobia F41.0 Active Problem Post-traumatic stress disorder, chronic F43.12 Active Medications Medication Code System Code Instructions Start Date End Date Status Dosage Clonazepam [facility] [address]-07 0.5 MG Orally up to twice a day as needed for anxiety Jul 05, 2016 1 tablet Results No Known Results Summary Purpose eClinicalWorks Submission
--- OUTSIDE RECORDS SUMMARY | 2016-07-28 13:12 | XMS REPORT ---
Author Ita Kessler [facility] eClinicalWorks Address Unknown Phone Unavailable Care Team Providers Care Pipe And Test Supervisor Name Role Phone Ita Stearns CP Unavailable Allergies, Adverse Reactions, Alerts Substance Reaction Event Type Sulfa Info Not Available Drug Allergy Problems Problem Type Condition Code Onset Dates Condition Status Problem Dysthymic disorder F34.1 Active Problem Panic disorder [episodic paroxysmal anxiety] without agoraphobia F41.0 Active Problem Post-traumatic stress disorder, chronic F43.12 Active Assessment Post-traumatic stress disorder, chronic F43.12 Active Assessment Dysthymic disorder F34.1 Active Assessment Panic disorder [episodic paroxysmal anxiety] without agoraphobia F41.0 Active Medications Medication Code System Code Instructions Start Date End Date Status Dosage Fluticasone Propionate [facility] [address]-72 50 MCG/ACT Nasally Once a day 1 spray in each nostril Zyrtec Allergy [facility] [address]-47 10 MG Orally Once a day 1 tablet Clonazepam [facility] [address]-43 0.5 MG Orally up to twice a day as needed for anxiety December 06, 2015 1 tablet Lamotrigine [facility] [address]-71 100 MG Orally Twice a day July 11, 2014 1 tablet Amitriptyline HCl [facility] [address]-71 100 MG Orally at bedtime October 03, 2014 1 tablet Nasonex [facility] [address]-09 50 MCG/ACT Nasally twice a day 2 sprays in each nostril Tussin [facility] 07907-95180 100 MG/5ML Orally every 4 hrs 10 ml as needed Prazosin HCl [facility] [address]-81 1 MG Orally at bedtime as needed for sleep July 11, 2014 2-3 capsules Fluconazole [facility] [address]-86 100 MG Orally Once a day 1 tablet Advair Diskus [facility] [address]-85 500-50 MCG/DOSE Inhalation Twice a day 1 puff Albuterol Sulfate HFA [facility] [address]-55 108 (90 Base) MCG/ACT Inhalation every 4 hrs 2 puffs as needed Prednisone NDC 0 Oral 1 tab Montelukast Sodium [facility] [address]-93 10 MG Orally Once a day 1 tablet in the evening Omeprazole [facility] [address]-69 20 MG Orally Once a day 1 capsule Procedures Procedure Coding System Code Date OFFICE VISIT, EST-MOD. COMPLEXITY (25 MIN) CPT-4 44158 Apr 24, 2015 Vital Signs Date/Time: Apr 24, 2015 Height 64.75 in Weight 197.8 lbs Temperature 98.2 F Blood Pressure Diastolic 78 mm Hg Blood Pressure Systolic 118 mm Hg Cardiac Monitoring Heart Rate 86 /min BMI 33.17 Index Respiratory Rate 18 /min Results No Known Results Summary Purpose eClinicalWorks Submission
--- OUTSIDE RECORDS SUMMARY | 2016-07-28 13:12 | XMS REPORT ---
Author Author Ita Stearns Organization eClinicalWorks Address Unknown Phone Unavailable Care Team Providers Care Banquet Chef Name Role Phone Ita Stearns CP Unavailable Allergies No Known Allergies Problems Problem Type Condition ICD-9 Code Onset Dates Condition Status Problem Dysthymic disorder 300.4 Active Problem Panic disorder without agoraphobia 300.01 Active Problem Posttraumatic stress disorder 309.81 Active Medications Medication Code System Code Instructions Start Date End Date Status Dosage Amitriptyline HCl [facility] [address]-49 25 MG Orally at bedtime October 03, 2014 1-2 tablets Results No Known Results Summary Purpose eClinicalWorks Submission
--- OUTSIDE RECORDS SUMMARY | 2016-07-28 13:12 | XMS REPORT ---
Author Author Ita Stearns Organization eClinicalWorks Address Unknown Phone Unavailable Care Team Providers Care Fur Dresser Name Role Phone Ita Stearns CP Unavailable Allergies No Known Allergies Problems Problem Type Condition ICD-9 Code Onset Dates Condition Status Problem Dysthymic disorder 300.4 Active Problem Panic disorder without agoraphobia 300.01 Active Problem Posttraumatic stress disorder 309.81 Active Medications No Known Medications Results No Known Results Summary Purpose eClinicalWorks Submission
--- OUTSIDE RECORDS SUMMARY | 2016-07-28 13:12 | XMS REPORT ---
Author Author Ita Stearns Organization eClinicalWorks Address Unknown Phone Unavailable Care Team Providers Care Mirror Department Supervisor Name Role Phone Ita Stearns CP Unavailable Allergies No Known Allergies Problems Problem Type Condition Code Onset Dates Condition Status Problem Dysthymic disorder F34.1 Active Problem Panic disorder [episodic paroxysmal anxiety] without agoraphobia F41.0 Active Problem Post-traumatic stress disorder, chronic F43.12 Active Medications Medication Code System Code Instructions Start Date End Date Status Dosage Prazosin HCl [facility] [address]-92 1 MG Orally at bedtime as needed for sleep July 11, 2014 2-3 capsules Results No Known Results Summary Purpose eClinicalWorks Submission
--- OUTSIDE RECORDS SUMMARY | 2016-07-28 13:13 | XMS REPORT ---
Author Author Homer Aldridge [facility] eClinicalWorks Address Unknown Phone Unavailable Care Team Providers Care Bucket Pusher Name Role Phone Homer Aldridge CP Unavailable Allergies No Known Allergies Problems Problem Type Condition Code Onset Dates Condition Status Problem Dysthymic disorder F34.1 Active Problem Panic disorder [episodic paroxysmal anxiety] without agoraphobia F41.0 Active Problem Post-traumatic stress disorder, chronic F43.12 Active Medications No Known Medications Results No Known Results Summary Purpose eClinicalWorks Submission
--- OUTSIDE RECORDS SUMMARY | 2016-07-28 13:13 | XMS REPORT | Continuity of Care Document ---
Author Author [facility] Organization [facility] Address Unknown Phone Unavailable Care Team Providers Care Ornamenter Hand Name Role Phone ASHLY MEAD MD Primary Care Physician [phone] Insurance Providers Payer Name Policy Number Subscriber Name Relationship [facility] [id number] Constance Sandra 19 Self Problems Medical Problems Problem Onset Date Status Right upper quadrant abdominal pain Unknown Active Cystitis Unknown Active Right upper quadrant abdominal pain Unknown Active Pain, dental Unknown Active Dental infection Unknown Active Medications Medication Dose Route Sig Days/Qty Instructions Order Date Discontinued Date Status Albuterol 11/02/10 Active Fluticasone/Salmeterol 1 Puff ORAL INH RESP.TX TWICE A DAY 06/01/14 Active Clonazepam 1 Tab PO NEEDED For ANXIETY/AIRHUNGER/AGITATION Active Trazodone HCl 50 Mg PO BEDTIME Take 1 tablet, by mouth, one time a day ( at BEDTIME). 06/01/14 Active Amoxicillin 500 Mg PO THREE TIMES A DAY 30 Qty 06/01/14 Active Hydrocodone/Acetaminophen 1-2 Tab PO Every 6 Hours PRN PAIN 20 Qty Active Social History Social History Problem Response Recorded Date/Time Hx Substance Use No 06/01/2014 12:47pm Hx Alcohol Use Y OCCASIONAL 06/01/2014 12:47pm Tobacco Usage none 03/10/2014 7:12pm Query Response Start Date Stop Date Smoking Status Never smoker Hospital Discharge Instructions No hospital discharge instructions. Plan of Care No plan of care. Functional Status Query Response Date Recorded Physical Hygiene Self June 01, 2014 12:47pm Disabilities None June 01, 2014 12:47pm Devices Used None June 01, 2014 12:47pm Dressing Self June 01, 2014 12:47pm Ambulation Self June 01, 2014 12:47pm Diet Self June 01, 2014 12:47pm Mental Status Alert Oriented June 01, 2014 12:47pm Disabilities None June 01, 2014 12:47pm Devices Used None June 01, 2014 12:47pm Physical Hygiene Self June 01, 2014 12:47pm Dressing Self June 01, 2014 12:47pm Ambulation Self June 01, 2014 12:47pm Diet Self June 01, 2014 12:47pm Allergies, Adverse Reactions, Alerts Allergen Type Severity Reaction Status Last Updated Sulfa (Sulfonamide Antibiotics) Allergy Unknown Active 06/01/14 Immunizations Name Given Type Hx Influenza Vaccination Y 02/07 Historical Hx Pneumococcal Vaccination Yes Historical Hx Influenza Vaccination Y 02/07 Historical Vital Signs Acute Vital Signs Vital Response Date/Time Temperature (Fahrenheit) 97.1 deg F (96.8 - 99.1) Temperature (Calculated Celsius) 36.97313 degrees C (36.0 - 37.3) Pulse Rate (adult) 98 bpm (60 - 100) Respiratory Rate 20 breaths/min (10 - 20) O2 Sat by Pulse Oximetry 97 % (90 - 100) Blood Pressure 119/75 mm Hg Height 5 ft 7 in Weight 212 lb Body Mass Index 33.0 kg/m^2 Results [...] Has specimen been collected/obtained? Y Urine Specific [place] March 10, 2014 3:40pm 1.015 - Has [...] Blood November 02, 2010 2:30am Propionibacterium Acnes Name: CONSTANCE SANDRA Unit #: [id number] : 1985 Sex: F Loc / c: ED DOS: 03/10/14 Signed Report #: [id number] DIAGNOSTIC IMAGING REPORT TYPE OF EXAM: ABDOMEN ACUTE (INC. CHEST) Dictated By: REINIER LEAVITT MD INDICATION: ITS.REASON: abdominal pain COMPARISON: none. ABDOMEN ACUTE (INC. CHEST): No acute findings on the CXR. Right pelvic calcification is consistent with a phlebolith. No evidence of bowel obstruction. No visible kidney stones. IMPRESSION: No evidence of acute disease. . Procedures Procedure Status Date Provider(s) ROUTINE VENIPUNCTURE completed 03/10/14 X-RAY EXAM SERIES ABDOMEN completed 03/10/14 COMPREHEN METABOLIC PANEL completed 03/10/14 URINALYSIS AUTO W/O SCOPE completed 03/10/14 URINE TEST completed 03/10/14 ASSAY OF LIPASE completed 03/10/14 COMPLETE CBC W/AUTO DIFF WBC completed 03/10/14 EMERGENCY DEPT VISIT completed 03/10/14 Encounters Encounter Location Date/Time Departed Emergency Room [facility] 06/01/14 11:48am Departed Emergency Room [facility] 03/10/14 3:19pm Recent Diagnosis
--- OUTSIDE RECORDS SUMMARY | 2016-07-28 13:13 | XMS REPORT ---
Author Author Ita Stearns [facility] eClinicalWorks Address Unknown Phone Unavailable Care Team Providers Care Machine Tool Builder Name Role Phone Ita Stearns CP Unavailable Allergies No Known Allergies Problems Problem Type Condition ICD-9 Code Onset Dates Condition Status Problem Dysthymic disorder 300.4 Active Problem Panic disorder without agoraphobia 300.01 Active Problem Posttraumatic stress disorder 309.81 Active Medications No Known Medications Results No Known Results Summary Purpose eClinicalWorks Submission
--- OUTSIDE RECORDS SUMMARY | 2016-07-28 13:13 | XMS REPORT ---
Author Author Ita Stearns Organization eClinicalWorks Address Unknown Phone Unavailable Care Team Providers Care Armature Coil Winder Name Role Phone Ita Stearns CP Unavailable Allergies No Known Allergies Problems Problem Type Condition Code Onset Dates Condition Status Problem Dysthymic disorder F34.1 Active Problem Panic disorder [episodic paroxysmal anxiety] without agoraphobia F41.0 Active Problem Post-traumatic stress disorder, chronic F43.12 Active Medications Medication Code System Code Instructions Start Date End Date Status Dosage Amitriptyline HCl [facility] [address]-42 100 MG Orally at bedtime October 03, 2014 1 tablet Clonazepam [facility] [address]-39 0.5 MG Orally up to twice a day as needed for anxiety December 06, 2015 1 tablet Results No Known Results Summary Purpose eClinicalWorks Submission
--- OUTSIDE RECORDS SUMMARY | 2016-07-28 13:13 | XMS REPORT ---
Author Author Ita Stearns Organization eClinicalWorks Address Unknown Phone Unavailable Care Team Providers Care Street Cleaner Name Role Phone Ita Stearns CP Unavailable Allergies No Known Allergies Problems Problem Type Condition Code Onset Dates Condition Status Problem Dysthymic disorder 300.4 Active Problem Panic disorder without agoraphobia 300.01 Active Problem Posttraumatic stress disorder 309.81 Active Medications Medication Code System Code Instructions Start Date End Date Status Dosage Clonazepam [facility] [address]-32 0.5 MG Orally up to twice a day as needed for anxiety December 06, 2015 1 tablet Results No Known Results Summary Purpose eClinicalWorks Submission
--- OUTSIDE RECORDS SUMMARY | 2016-07-28 13:13 | XMS REPORT ---
Author Author Ita Stearns [facility] eClinicalWorks Address Unknown Phone Unavailable Care Team Providers Care Bureau Chief Name Role Phone Ita Stearns CP Unavailable [...] Date End Date Status Dosage Advair Diskus [facility] [address]-82 250-50 MCG/DOSE Inhalation Twice a day 1 puff Prazosin HCl [facility] [address]-07 1 MG Orally at bedtime as needed for sleep July 11, 2014 1-2 capsules Zyrtec Allergy [facility] [address]-90 10 MG Orally Once a day 1 tablet Benzonatate [facility] [address]-41 100 MG Orally Three times a day 1 capsule as needed Lamotrigine [facility] [address]-20 25 MG Orally at bedtime July 11, 2014 one tablet at bedtime for one week, increase by 25mg every week until reaching 150mg total at bedtime Clonazepam [facility] [address]-04 0.5 MG Orally once a day as needed for anxiety 1 tablet Nasonex [facility] [address]-64 50 MCG/ACT Nasally twice a day 2 sprays in each nostril Albuterol Sulfate HFA [facility] [address]-62 108 (90 Base) MCG/ACT Inhalation every 4 hrs 2 puffs as needed Prednisone NDC 0 10 Oral daily for 5 days 1 tab Procedures Procedure Coding System Code Date OFFICE VISIT, EST-MOD. COMPLEXITY (25 MIN) CPT-4 88957 July 11, 2014 Vital Signs Date/Time: July 11, 2014 Height 64.75 in Weight 213 lbs Temperature 97.9 F Blood Pressure Diastolic 80 mm Hg Blood Pressure Systolic 114 mm Hg Cardiac Monitoring Heart Rate 108 /min BMI 35.72 Index Respiratory Rate 20 /min Results No Known Results Summary Purpose eClinicalWorks Submission
--- OUTSIDE RECORDS SUMMARY | 2016-07-28 13:13 | XMS REPORT ---
Author Author Ita Stearns Organization eClinicalWorks Address Unknown Phone Unavailable Care Team Providers Care Line Fisher Name Role Phone Ita Stearns CP Unavailable Allergies No Known Allergies Problems Problem Type Condition Code Onset Dates Condition Status Problem Dysthymic disorder F34.1 Active Problem Panic disorder [episodic paroxysmal anxiety] without agoraphobia F41.0 Active Problem Post-traumatic stress disorder, chronic F43.12 Active Medications No Known Medications Results No Known Results Summary Purpose eClinicalWorks Submission
--- OUTSIDE RECORDS SUMMARY | 2016-07-28 13:13 | XMS REPORT ---
Author Author Ita Stearns Organization eClinicalWorks Address Unknown Phone Unavailable Care Team Providers Care Video Game Developer Name Role Phone Ita Stearns CP [...] Start Date End Date Status Dosage Clonazepam [facility] [address]-38 0.5 MG Orally once a day as needed for anxiety 1 tablet Zyrtec Allergy [facility] [address]-31 10 MG Orally Once a day 1 tablet Advair Diskus [facility] [address]-27 500-50 MCG/DOSE Inhalation Twice a day 1 puff Lamotrigine [facility] [address]-26 150 MG Orally Once a day July 11, 2014 1 tablet Nasonex [facility] [address]-13 50 MCG/ACT Nasally twice a day 2 sprays in each nostril Albuterol Sulfate HFA [facility] [address]-79 108 (90 Base) MCG/ACT Inhalation every 4 hrs 2 puffs as needed Prazosin HCl [facility] [address]-16 1 MG Orally at bedtime as needed for sleep July 11, 2014 2-3 capsules Procedures Procedure Coding System Code Date OFFICE VISIT, EST-MOD. COMPLEXITY (25 MIN) CPT-4 61045 August 20, 2014 Vital Signs Date/Time: August 20, 2014 Height 64.75 in Weight 200.75 lbs Temperature 98.6 F Blood Pressure Diastolic 84 mm Hg Blood Pressure Systolic 124 mm Hg Cardiac Monitoring Heart Rate 84 /min BMI 33.66 Index Respiratory Rate 16 /min Results No Known Results Summary Purpose eClinicalWorks Submission
--- OUTSIDE RECORDS SUMMARY | 2016-07-28 13:13 | XMS REPORT ---
Author Author Ita Stearns Organization eClinicalWorks Address Unknown Phone Unavailable Care Team Providers Care Medical Investigator Name Role Phone Ita Stearns CP Unavailable Allergies No Known Allergies Problems Problem Type Condition ICD-9 Code Onset Dates Condition Status Problem Dysthymic disorder 300.4 Active Problem Panic disorder without agoraphobia 300.01 Active Problem Posttraumatic stress disorder 309.81 Active Medications Medication Code System Code Instructions Start Date End Date Status Dosage Clonazepam [facility] [address]-89 0.5 MG Orally up to twice a day as needed for anxiety 1 tablet Results No Known Results Summary Purpose eClinicalWorks Submission
--- OUTSIDE RECORDS SUMMARY | 2016-07-28 13:13 | XMS REPORT ---
Author Author Ita Stearns Organization eClinicalWorks Address Unknown Phone Unavailable Care Team Providers Care Pattern Changer Name Role Phone Ita Stearns CP Unavailable Allergies No Known Allergies Problems Problem Type Condition Code Onset Dates Condition Status Problem Dysthymic disorder F34.1 Active Problem Panic disorder [episodic paroxysmal anxiety] without agoraphobia F41.0 Active Problem Posttraumatic stress disorder 309.81 Active Medications No Known Medications Results No Known Results Summary Purpose eClinicalWorks Submission
--- OUTSIDE RECORDS SUMMARY | 2016-07-28 13:13 | XMS REPORT ---
Author Author Homer Aldridge [facility] eClinicalWorks Address Unknown Phone Unavailable Care Team Providers Care Beater Room Supervisor Name Role Phone Homer Aldridge CP Unavailable Allergies No Known Allergies Problems Problem Type Condition Code Onset Dates Condition Status Problem Dysthymic disorder F34.1 Active Problem Panic disorder [episodic paroxysmal anxiety] without agoraphobia F41.0 Active Problem Post-traumatic stress disorder, chronic F43.12 Active Medications Medication Code System Code Instructions Start Date End Date Status Dosage Clonazepam [facility] [address]-30 0.5 MG Orally up to twice a day as needed for anxiety Jul 05, [address] [facility] [address]-29 100 MG Orally as directed July 11, 2014 1 tablet in the AM and 1 1/2 tablets at bedtime Results No Known Results Summary Purpose eClinicalWorks Submission
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
--- NOTE | 2016-07-28 13:27 | NUR ---
rt in room with pt
[2016-07-28] MEDS ORDERED: PredniSONE 10 MG TABLET PO ONE (13:30)
[2016-07-28] MEDS ORDERED: ALBUTEROL INH.SOLN. 2.5mg/3ml (0.083%) Neb. AEROSOL ONE (13:30)
--- OUTSIDE RECORDS SUMMARY | 2016-07-28 13:48 | XMS REPORT | Continuity of Care Document ---
Author Author [facility] Organization [facility] Address Unknown Phone Unavailable Care Team Providers Care Chief Crna Name Role Phone ASHLY EMAD MD Primary Care Physician [phone] Insurance Providers Payer Name Policy Number Subscriber Name Relationship [facility] [facility] [id number] Constance Sandra 19 Self Problems Medical Problems [...] F (96.8 - 99.1) Temperature (Calculated Celsius) 36.45307 degrees C (36.0 - 37.3) Pulse Rate [...] Has specimen been collected/obtained? Y Urine Specific [place] March 10, 2014 3:40pm 1.015 - Has [...] Encounters Encounter Location Date/Time Departed Emergency Room [facility] 07/29/14 7:39am Departed Emergency Room [facility] 06/01/14 11:48am Recent Diagnosis
--- OUTSIDE RECORDS SUMMARY | 2016-07-28 13:48 | XMS REPORT | Continuity of Care Document ---
Author Author [facility] Organization [facility] Address Unknown Phone Unavailable Care Team Providers Care Cattle Broker Name Role Phone ASHLY MEAD MD Primary Care Physician [phone] Insurance Providers Payer Name Policy Number Subscriber Name Relationship [facility] [id number] Constance Sandra 19 Self Problems Medical Problems [...] F (96.8 - 99.1) Temperature (Calculated Celsius) 36.73566 degrees C (36.0 - 37.3) Pulse Rate [...] Has specimen been collected/obtained? Y Urine Specific [place] March 10, 2014 3:40pm 1.015 - Has [...] Encounters Encounter Location Date/Time Departed Emergency Room [facility] 03/10/14 3:19pm Recent Diagnosis
[2016-07-28] MEDS ORDERED: CODE118S2 PO (13:49)
[2016-07-28] MEDS ORDERED: BUTA1CAP51 PO (13:49)
[2016-07-28] MEDS ORDERED: ALBU6.7H INH (13:49)
[2016-07-28] MEDS ORDERED: NYST5ORA7 SSP (13:49)
--- OUTSIDE RECORDS SUMMARY | 2016-07-28 13:49 | XMS REPORT | Continuity of Care Document ---
Author Author [facility] Organization [facility] Address Unknown Phone Unavailable Care Team Providers Care Computer Aided Design Drafter Name Role Phone ASHLY MEAD MD Primary Care Physician [phone] Insurance Providers Payer Name Policy Number Subscriber Name Relationship [facility] [id number] Constance Sandra 19 Self Problems Medical Problems [...] F (96.8 - 99.1) Temperature (Calculated Celsius) 36.52265 degrees C (36.0 - 37.3) Pulse Rate [...] Has specimen been collected/obtained? Y Urine Specific [place] March 10, 2014 3:40pm 1.015 - Has [...] Propionibacterium Acnes Name: CONSTANCE SANDRA Unit #: [id number] : 1985 Sex: F Loc / c: ED DOS: 03/10/14 Signed Report #: [id number] DIAGNOSTIC IMAGING REPORT TYPE OF EXAM: ABDOMEN [...] Encounters Encounter Location Date/Time Departed Emergency Room [facility] 06/01/14 11:48am Departed Emergency Room [facility] 03/10/14 3:19pm Recent Diagnosis
[2016-07-28] MEDS ORDERED: ALBU18HF2 ORAL INH (13:50)
[2016-07-28] MEDS ORDERED: IBUP-1724 PO (13:50)
[2016-07-28] MEDS ORDERED: PRED20TA PO (14:11)
[2016-07-28 14:22] VITALS: BP 108/62; PULSE 85; RESP 20; TEMP 98.3; O2SAT 92
== END 2016-07-28 14:22 | disposition home or self-care (01) ==
LOC: ED 13:07
DX: J45.901 Unspecified asthma with (acute) exacerbation (principal)
CPT/HCPCS: 94640; 99283; J7512; J7611

== ENCOUNTER 2016-08-08 19:44 | Emergency (ER) | payer MEDICAID ==
[~2016-08-08] VITALS: Ht 167.6 cm; Wt 84.4 kg
[~2016-08-08 19:44] MED LIST changes: +ALBU18HF2 ORAL INH; +ALBU6.7H INH; -AMIT100T2 PO; -AZIT250T6 PO; +BUTA1CAP51 PO; -CEPH-583 PO; +CODE118S2 PO; +IBUP-1724 PO; -METH4TAB3 PO; +NYST5ORA7 SSP; -OMEP-122 PO
--- OUTSIDE RECORDS SUMMARY | 2016-08-08 19:48 | XMS REPORT | Continuity of Care Document ---
Author Author [facility] Organization [facility] Address Unknown Phone Unavailable Care Team Providers Care Hat Cutter Name Role Phone ASHLY MEAD MD Primary Care Physician [phone] Insurance Providers Payer Name Policy Number Subscriber Name Relationship [facility] [id number] Constance Sandra 19 Self Problems Medical Problems [...] F (96.8 - 99.1) Temperature (Calculated Celsius) 36.79047 degrees C (36.0 - 37.3) Pulse Rate [...] Has specimen been collected/obtained? Y Urine Specific [place] March 10, 2014 3:40pm 1.015 - Has [...] Encounters Encounter Location Date/Time Departed Emergency Room [facility] 03/10/14 3:19pm Recent Diagnosis
--- OUTSIDE RECORDS SUMMARY | 2016-08-08 19:48 | XMS REPORT | Continuity of Care Document ---
Author Author [facility] Organization [facility] Address Unknown Phone Unavailable Care Team Providers Care Installation And Repair Technician Name Role Phone ASHLY MEAD MD Primary Care Physician [phone] Insurance Providers Payer Name Policy Number Subscriber Name Relationship [facility] [employer] [facility] [id number] Constance Sandra 19 Self Problems Medical Problems [...] F (96.8 - 99.1) Temperature (Calculated Celsius) 36.24987 degrees C (36.0 - 37.3) Pulse Rate [...] Has specimen been collected/obtained? Y Urine Specific [place] March 10, 2014 3:40pm 1.015 - Has [...] Encounters Encounter Location Date/Time Departed Emergency Room [facility] 07/29/14 7:39am Departed Emergency Room [facility] 06/01/14 11:48am Recent Diagnosis
--- OUTSIDE RECORDS SUMMARY | 2016-08-08 19:49 | XMS REPORT | Continuity of Care Document ---
Author Author [facility] Organization [facility] Address Unknown Phone Unavailable Care Team Providers Care Bottle And Glass Inspector Name Role Phone ASHLY MEAD MD Primary Care Physician [phone] Insurance Providers Payer Name Policy Number Subscriber Name Relationship [facility] [id number] Constance Sandra 19 Self Problems Medical Problems [...] F (96.8 - 99.1) Temperature (Calculated Celsius) 36.79173 degrees C (36.0 - 37.3) Pulse Rate [...] Has specimen been collected/obtained? Y Urine Specific [place] March 10, 2014 3:40pm 1.015 - Has [...] Propionibacterium Acnes Name: CONSTANCE SANDRA Unit #: [id number] : 1985 Sex: F Loc / c: ED DOS: 03/10/14 Signed Report #: [id number] DIAGNOSTIC IMAGING REPORT TYPE OF EXAM: ABDOMEN [facility] 11:48am Departed Emergency Room [facility] 03/10/14 3:19pm Recent Diagnosis
--- OUTSIDE RECORDS SUMMARY | 2016-08-08 19:49 | XMS REPORT | Continuity of Care Document ---
Author Author [facility] Organization [facility] Address Unknown Phone Unavailable Care Team Providers Care Utility Maintenance Worker Name Role Phone ASHLY MEAD MD Primary Care Physician [phone] Insurance Providers Guarantor Constance Sandra Address [address] [address] Email [email or web address] Payer [facility] Plan Policy Number [id number] Subscriber's Name Constance Sandra Karlo Relationship 18 Self Effective Date 15 Expiration Date 15 Chief Complaint and Reason for Visit Chief Complaint Dyspnea/Respdistress Reason for Visit Asthma exacerbation Problems Active [...] Medical Problem Onset Date Asthma exacerbation Unknown Asthma exacerbation Unknown Medications Current Home Medications Medication Dose Units Route Directions Days Qty Instructions Start Date Albuterol Sulfate 2.5 Mg/0.5 Ml Vial.neb 1 Vial Aerosol Tx. Every 4-6 Hours for Asthma 120 Vial 05/11/15 Albuterol Sulfate (Ventolin Hfa 90 Mcg/Actuation) 18 Gm Hfa.aer.ad 1 Puff Oral Inhalation Every 4 Hours as needed for Shortness Of Air/Wheezing 07/28/16 Albuterol Sulfate (Proventil Hfa 90 Mcg/Actuation) 200 Puff/6.7 G Inha 2 Puff Inhalation Four Times Daily as needed for Prn Orders 07/28/16 Butalb/Acetaminophen/Caffeine (Beilkf-Hqighpqe-Dexv 50-300-40) 1 Each Capsule 1 Cap Oral Every 6 Hours as needed for Migraine Headache 07/28/16 Cetirizine Hcl (Zyrtec) 10 Mg Tablet 10 Mg Oral Daily as needed for Allery Symptoms 05/11/15 Clonazepam 0.5 Mg Tab.rapdis 0.5 Mg Oral Twice A Day 06/01/14 Fluconazole 150 Mg Tablet 150 Mg Oral Daily as needed for Thrush 05/11/15 Fluticasone Propionate (Fluticasone Prop 50 Mcg/Actuation Nasal [place]) 120 [place]/16 G [place] 1 [place] Each Nostril Twice A Day 05/11/15 Fluticasone/Salmeterol (Advair 500-50 Diskus) 1 Disk W/Dev Disk.w.dev 1 Puff Oral Inhalation Resp.tx Twice A Day 07/29/14 Ibuprofen 200 Mg Tablet 400 Mg Oral Every 4 Hours as needed for Pain 07/28/16 Ipratropium/Albuterol Sulfate (Iprat-Albut 0.5-3(2.5) Mg/3 Ml) 3 Ml Ampul.neb 1 Vial Inhalation Every 3-4 Hours as needed for Shortness Of Air Lamotrigine 100 Mg Tablet 100 Mg Oral Twice A Day 05/11/15 Montelukast Sodium (Singulair) 10 Mg Tablet 10 Mg Oral Bedtime Nystatin 100,000 Unit/1 Ml Oral.susp 2 Ml Swish And Spit Three Times A Day as needed for Thrush 07/28/16 Prazosin Hcl 1 Mg Capsule 1-3 Mg Oral Bedtime as needed for Night Terrors 07/29/14 Prednisone 20 Mg Tablet 20 Mg Oral Per Comments 15 Tablet Take 3 tablets by mouth for 2 days, then 2 tablets by mouth daily for 3 days, then 1 tablet by mouth daily for 3 days then stop. 07/28/16 Promethazine Hcl/Codeine (Promethazine-Codeine Syrup) 118 Ml Syrup 5 Ml Oral Every 4 Hours as needed for Cough 07/28/16 Social History Social History Problem Response Recorded Date/Time Onset Date Status Hx Substance Use No 07/28/2016 1:24pm Not Applicable Not Applicable Hx Alcohol Use Y OCCASIONAL 07/28/2016 1:24pm Not Applicable Not Applicable Query Response Start Date Stop Date Smoking Status Never smoker Hospital Discharge Instructions No hospital discharge instructions. Plan of Care Discharge Date 07/28/16 2:22pm Disposition 01 DISCHARGED HOME, SELF-CARE Condition at Discharge Stable Instructions/Education Provided Asthma (ED) Forms Provided Return to Work/School Permit Prescriptions See Medication Section Referrals ASHLY MEAD MD Address: [address] [place] [id number] TINY WALTER APRN Address: [address] [place] [address] Additional Instructions/Education Take the Prednisone as prescribed. Continue to use the inhaler and the nebulizer as needed. If not improving at all then return to ER or follow up with Tiny LEMA in clinic. Care Plan and Goals Physician Care Plan Problem:Asthma exacerbation Goal: Follow up with primary care provider Instructions: Take medications and follow care plan as discussed/written Functional Status No functional status results. Allergies, Adverse Reactions, Alerts Allergen Type Severity Reaction Status Last Updated Sulfa (Sulfonamide Antibiotics) Adverse Reaction Mild stomach ache Active 07/28/16 Immunizations Query Response on File Recorded Date/Time Hx Influenza Vaccination Y 02/1810/21/14 9:19am Hx Pneumococcal Vaccination Yes 10/21/14 9:19am Hx Tetanus, Diptheria, Pertussis Y 05/201410/21/14 9:19am Hx Influenza Vaccination Y 02/1810/21/14 9:19am Hx Tetanus, Diptheria, Pertussis Y 05/201410/21/14 9:19am Influenza Vaccine Hx APR 2016 07/28/16 1:24pm Vital Signs Acute Vital Signs Vital Response Date/Time Temperature (Fahrenheit) 98.3 deg F (96.8 - 99.1) 07/28/2016 2:22pm Temperature (Calculated Celsius) 36.83228 degrees C (36.0 - 37.3) 07/28/2016 2:22pm Pulse Rate (adult) 85 bpm (60 - 100) 07/28/2016 2:22pm Respiratory Rate 20 breaths/min (10 - 20) 07/28/2016 2:22pm O2 Sat by Pulse Oximetry 92 % (90 - 100) 07/28/2016 2:22pm Blood Pressure 108/62 mm Hg 07/28/2016 2:22pm Height (Feet) 5 feet 07/28/2016 1:10pm Height (Inches) 6.00 inches 07/28/2016 1:10pm Weight (Kilograms) 85.600 kg 07/28/2016 1:10pm Body Mass Index (BMI) 30.0 07/28/2016 1:10pm Results No known relevant diagnostic tests, laboratory data and/or discharge summary. Procedures No known history of procedures. Encounters Encounter Location Arrival/Admit Date Discharge/Depart Date Attending Provider Departed Emergency Room [facility] 07/28/16 1:07pm 07/28/16 2: 22pm PATI GORE DO Recent Diagnosis
[2016-08-08 20:00] VITALS: Ht 167.6 cm; Wt 84.4 kg
--- OUTSIDE RECORDS SUMMARY | 2016-08-08 20:11 | XMS REPORT | Continuity of Care Document ---
Author Author [facility] Organization [facility] Address Unknown Phone Unavailable Care Team Providers Care Court Magistrate Name Role Phone ASHLY MEAD MD Primary Care Physician [phone] Insurance Providers Payer Name Policy Number Subscriber Name Relationship [facility] [id number] Constance Sandra 19 Self Problems Medical Problems [...] F (96.8 - 99.1) Temperature (Calculated Celsius) 36.70724 degrees C (36.0 - 37.3) Pulse Rate [...] Has specimen been collected/obtained? Y Urine Specific [place] March 10, 2014 3:40pm 1.015 - Has [...] Encounters Encounter Location Date/Time Departed Emergency Room [facility] 03/10/14 3:19pm Recent Diagnosis
--- OUTSIDE RECORDS SUMMARY | 2016-08-08 20:11 | XMS REPORT | Continuity of Care Document ---
Author Author [facility] Organization [facility] Address Unknown Phone Unavailable Care Team Providers Care Copyman Name Role Phone ASHLY MEAD MD Primary Care Physician [phone] Insurance Providers Payer Name Policy Number Subscriber Name Relationship [facility] [employer] [facility] [id number] Constance Sandra 19 Self Problems Medical Problems [...] F (96.8 - 99.1) Temperature (Calculated Celsius) 36.82680 degrees C (36.0 - 37.3) Pulse Rate [...] Has specimen been collected/obtained? Y Urine Specific [place] March 10, 2014 3:40pm 1.015 - Has [...] Encounters Encounter Location Date/Time Departed Emergency Room [facility] 07/29/14 7:39am Departed Emergency Room [facility] 06/01/14 11:48am Recent Diagnosis
--- OUTSIDE RECORDS SUMMARY | 2016-08-08 20:12 | XMS REPORT | Continuity of Care Document ---
Author Author [facility] Organization [facility] Address Unknown Phone Unavailable Care Team Providers Care Embossing Tool Setter Name Role Phone ASHLY MEAD MD Primary Care Physician [phone] Insurance Providers Payer Name Policy Number Subscriber Name Relationship [facility] [id number] Constance Sandra 19 Self Problems Medical Problems [...] F (96.8 - 99.1) Temperature (Calculated Celsius) 36.38754 degrees C (36.0 - 37.3) Pulse Rate [...] specimen been collected/obtained? Y Urine Specific [place] March 10, 2014 3:40pm 1.015 - Has [...] Propionibacterium Acnes Name: CONSTANCE SANDRA Unit #: [id number] : 1985 Sex: F Loc / c: ED DOS: 03/10/14 Signed Report #: [id number] DIAGNOSTIC IMAGING REPORT TYPE OF EXAM: ABDOMEN [...] Encounters Encounter Location Date/Time Departed [facility] 06/01/14 11:48am Departed Emergency Room [facility] 03/10/14 3:19pm Recent Diagnosis
[2016-08-08] MEDS ORDERED: ALBUTEROL INH.SOLN. 2.5mg/3ml (0.083%) Neb. AEROSOL ONE (20:15)
[2016-08-08] MEDS ORDERED: PredniSONE 10 MG TABLET PO ONE (20:15)
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
[2016-08-08] MEDS ORDERED: HYDROCODONE/APAP 5 mg/325 mg TABLET PO ONE (20:45)
[2016-08-08] MEDS ORDERED: HYDR-4246 PO (21:44)
[2016-08-08] MEDS ORDERED: PRED20TA PO (21:44)
[2016-08-08] MEDS ORDERED: HYDROCODONE/APAP 5/325 (PrePack) SENT HOME ONE (21:45)
[2016-08-08 22:10] VITALS: BP 117/69; PULSE 99; RESP 16; TEMP 97.5; O2SAT 98
--- NOTE | 2016-08-09 07:49 | DI ---
Indication: ITS.REASON: bilateral rib pain PROCEDURE: RIBS BILATERAL: Encounter: Initial Comparison: None Findings: AP and oblique views of the left ribs: No acute displaced rib fracture. AP and oblique views of the right ribs: No acute displaced rib fracture. Impression: Findings as above. .
--- NOTE | 2016-08-09 07:50 | DI ---
INDICATION: ITS.REASON: dyspnea, PROCEDURE: CHEST 2-VIEWS UPRIGHT (PA \T\ LAT) Encounter: Initial COMPARISON: May 11, 2015 FINDINGS: The lungs are clear without evidence of focal abnormal airspace opacity. There is no pleural effusion or pneumothorax. The heart size, mediastinal contours and pulmonary vascularity are within normal limits. There is no significant skeletal abnormality. IMPRESSION: No acute cardiopulmonary disease. .
--- NOTE | 2016-08-09 07:52 | DI ---
Indication: ITS.REASON: head injury with LOC PROCEDURE: CT HEAD W/O CONTRAST: Encounter: Initial Comparison: None Technique: Axial CT images through the head were performed without contrast. Iterative Reconstruction dose reducing technique was utilized. FINDINGS: The ventricles are of normal size, shape, and configuration for the patient's age. There is no evidence of acute intracranial hemorrhage, midline displacement, or mass effect. The CT attenuation of the brain parenchyma is normal within the cerebellum, brain stem, and cerebral hemispheres. The tympanic cavities and mastoid air cells are free of appreciable disease. There are no definite fractures of the skull base, calvarium, or visualized portion of the midface. Pansinus mucosal thickening. IMPRESSION: No CT evidence of acute traumatic intracranial injury. Acute pansinusitis. There is a preliminary report by virtual radiologic. .
== END 2016-08-08 22:10 | disposition home or self-care (01) ==
LOC: ED 19:44
DX: S20.219A Contusion of unspecified front wall of thorax, initial encounter (principal); S09.90XA Unspecified injury of head, initial encounter; J45.901 Unspecified asthma with (acute) exacerbation; F17.200 Nicotine dependence, unspecified, uncomplicated; Y09 Assault by unspecified means; Y93.9 Activity, unspecified; Y92.029 Unspecified place in mobile home as the place of occurrence of the external cause; Y99.8 Other external cause status
CPT/HCPCS: 70450; 71020; 71110; 81025; 94640; 99284; J7512; J7611

== ENCOUNTER 2016-08-31 19:13 | Emergency (ER) | payer MEDICAID ==
[~2016-08-31] VITALS: Ht 167.6 cm; Wt 88.9 kg
[~2016-08-31 19:13] MED LIST changes: +HYDR-4246 PO
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
--- OUTSIDE RECORDS SUMMARY | 2016-08-31 19:18 | XMS REPORT | Continuity of Care Document ---
Author Author [facility] Organization [facility] Address Unknown Phone Unavailable Care Team Providers Care Tractor Crane Operator Name Role Phone ASHLY MEAD MD Primary Care Physician [phone] Insurance Providers Payer Name Policy Number Subscriber Name Relationship [facility] [id number] Constance Sandra 18 Self Problems Medical Problems [...] F (96.8 - 99.1) Temperature (Calculated Celsius) 36.57145 degrees C (36.0 - 37.3) Pulse Rate [...] Has specimen been collected/obtained? Y Urine Specific [place] March 10, 2014 3:40pm 1.015 - Has [...] Encounters Encounter Location Date/Time Departed Emergency Room [facility] 03/10/14 3:19pm Recent Diagnosis
--- OUTSIDE RECORDS SUMMARY | 2016-08-31 19:18 | XMS REPORT | Continuity of Care Document ---
Author Author [facility] Organization [facility] Address Unknown Phone Unavailable Care Team Providers Care Drafting Engineer Name Role Phone AHSLY MEAD MD Primary Care Physician [phone] Insurance Providers Payer Name Policy Number Subscriber Name Relationship [facility] [employer] [facility] [id number] Constance Sandra 19 Self Problems Medical Problems [...] F (96.8 - 99.1) Temperature (Calculated Celsius) 36.99158 degrees C (36.0 - 37.3) Pulse Rate [...] Has specimen been collected/obtained? Y Urine Specific [place] March 10, 2014 3:40pm 1.015 - Has [...] Encounter Location Date/Time Departed Emergency Room [facility] 07/29/14 7:39am Departed Emergency Room [facility] 06/01/14 11:48am Recent Diagnosis
--- OUTSIDE RECORDS SUMMARY | 2016-08-31 19:19 | XMS REPORT | Continuity of Care Document ---
Author Author [facility] Organization [facility] Address Unknown Phone Unavailable Care Team Providers Care Scrap Drop Engineer Name Role Phone ASHLY MEAD MD Primary Care Physician [phone] Insurance Providers Payer Name Policy Number Subscriber Name Relationship [facility] [id number] Constance Sandra 19 Self Problems Medical Problems [...] F (96.8 - 99.1) Temperature (Calculated Celsius) 36.87569 degrees C (36.0 - 37.3) Pulse Rate [...] Has specimen been collected/obtained? Y Urine Specific [place] March 10, 2014 3:40pm 1.015 - Has [...] Propionibacterium Acnes Name: CONSTANCE SANDRA Unit #: [id number] : 1985 Sex: F Loc / c: ED DOS: 03/10/14 Signed Report #: [id number] DIAGNOSTIC IMAGING REPORT TYPE OF EXAM: ABDOMEN [...] Encounters Encounter Location Date/Time Departed Emergency Room [facility] 06/01/14 11:48am Departed Emergency Room [facility] 03/10/14 3:19pm Recent Diagnosis
[2016-08-31 19:22] VITALS: Ht 167.6 cm; Wt 88.9 kg
--- OUTSIDE RECORDS SUMMARY | 2016-08-31 19:45 | XMS REPORT | Continuity of Care Document ---
Author Author [facility] Organization [facility] Address Unknown Phone Unavailable Care Team Providers Care Household Chores Name Role Phone ASHLY MEAD MD Primary Care Physician [phone] Insurance Providers Payer Name Policy Number Subscriber Name Relationship [facility] [id number] Constance Sandra 19 Self Problems Medical Problems [...] F (96.8 - 99.1) Temperature (Calculated Celsius) 36.70824 degrees C (36.0 - 37.3) Pulse Rate [...] Has specimen been collected/obtained? Y Urine Specific [place] March 10, 2014 3:40pm 1.015 - Has [...] Encounters Encounter Location Date/Time Departed Emergency Room [facility] 03/10/14 3:19pm Recent Diagnosis
--- OUTSIDE RECORDS SUMMARY | 2016-08-31 19:45 | XMS REPORT | Continuity of Care Document ---
Author Author [facility] Organization [facility] Address Unknown Phone Unavailable Care Team Providers Care Customer Service Leader Name Role Phone ASHLY MEAD MD Primary Care Physician [phone] Insurance Providers Payer Name Policy Number Subscriber Name Relationship [facility] [employer] [facility] [id number] Constance Sandra 19 Self Problems Medical Problems [...] F (96.8 - 99.1) Temperature (Calculated Celsius) 36.09723 degrees C (36.0 - 37.3) Pulse Rate [...] Has specimen been collected/obtained? Y Urine Specific [place] March 10, 2014 3:40pm 1.015 - Has [...] Encounters Encounter Location Date/Time Departed Emergency Room [facility] 07/29/14 7:39am Departed Emergency Room [facility] 06/01/14 11:48am Recent Diagnosis
--- OUTSIDE RECORDS SUMMARY | 2016-08-31 19:46 | XMS REPORT | Continuity of Care Document ---
Author Author [facility] Organization [facility] Address Unknown Phone Unavailable Care Team Providers Care Auto Fleet Manager Name Role Phone ASHLY MEAD MD Primary Care Physician [phone] Insurance Providers Payer Name Policy Number Subscriber Name Relationship [facility] [id number] Constance Sandra 19 Self Problems Medical Problems [...] F (96.8 - 99.1) Temperature (Calculated Celsius) 36.56353 degrees C (36.0 - 37.3) Pulse Rate [...] Has specimen been collected/obtained? Y Urine Specific [place] March 10, 2014 3:40pm 1.015 - Has [...] Propionibacterium Acnes Name: CONSTANCE SANDRA Unit #: [id number] : 1985 Sex: F Loc / c: ED DOS: 03/10/14 Signed Report #: [id number] DIAGNOSTIC IMAGING REPORT TYPE OF EXAM: ABDOMEN [...] Encounters Encounter Location Date/Time Departed Emergency Room [facility] 06/01/14 11:48am Departed Emergency Room [facility] 03/10/14 3:19pm Recent Diagnosis
--- NOTE | 2016-08-31 20:06 | ERPDOC ---
Departure Disposition Decision Date: Aug 31, 2016 Disposition Decision Time: 20:20 Disposition: 01 DISCHARGED HOME, SELF-CARE Impression Impression Impression: Primary Impression: Fractured tooth Encounter type: initial encounter Fracture type: open Qualified Codes: S02.5XXB - Fracture of tooth (traumatic), initial encounter for open fracture Severity: Severe Condition: Improved Seen By: Physician only Referrals: ASHLY MEAD MD (PCP) MON[place]NA WALTER APRN (Family) 1 Week Patient Instructions: Dental Caries (ED), Toothache (ED) Problems/Meds/Labs Reviewed?: Yes Medications reviewed and manag: Yes Additional Instructions: Take the antibiotics as prescribed. Only use the norco for breakthrough pain. Follow up with your dentist for definitive care of your pain. Departure Forms: Return to Work/School Permit Follow up care ordered?: Yes Mental Status: Alert, Oriented Scripts Amoxicillin/Potassium Clav (Augmentin 875-125 Tablet) 1 Each Tablet 1 TAB PO BID for 7 Days, #14 TAB TAKE WITH MEALS Prov: DO 08/31/16 HPI General Chief Complaint: Toothache Stated Complaint: ABCESS TOOTH Time Seen by Provider: 19:32 Source: patient Exam Limitations: no limitations HPI Dental Initial Comments 30yo woman presents to the ER for dental pain. Pt has poor dentition secondary to chronic steroid use. Has fractured a tooth, but is waiting for the [facility] dentist. Tried to contact her doctor today for atbx, but was not able to. Is here for pain relief. Occurred At: home Onset: Gradual, Getting worse Duration: 1 week Pain Scale: Now & Worst: 10/10 Severity: severe Location: L upper 1 - Missing and fractured teeth Problem: fractured tooth Allergies: Coded Allergies: Sulfa (Sulfonamide Antibiotics) (Verified Adverse Reaction, Mild, stomach ache, 08/08/16) Past History Past Medical History ENMT: allergies, dental problems Hx Echocardiogram: No Respiratory: asthma GI: GERD, IBS, ulcers Female: UTI Musculoskeletal: back pain Psychological: anxiety, other Surgical History Denies Surgeries Family History Family PMH: FOUND: asthma Vaccines Hx Influenza Vaccination: Yes (02/18) Hx Pneumococcal Vaccination: Yes Hx Tetanus, Diptheria, Pertuss: Yes (05/2014) Social History Substance Use Type: does not use Alcohol Intake: none Sexuality: female partner Review of Systems ENMT Teeth: chipped/cracked tooth, missing teeth, pain Exam General Vital Signs: Temperature: 97.5, Source: Oral, Heart Rate: 89, Respiratory Rate : 18, BP: 116/63, Pulse Oximetry: 97 Height (Feet): 5 Height (Inches): 6.00 [facility] Face: NOT FOUND: bruising, erythema, swelling Jaw: NOT FOUND: asymmetry Glands: NOT FOUND: L parotid swollen, R parotid swollen Ducts: NOT FOUND: L [place]'s blocked, R [place]'s blocked Lips: NOT FOUDN: laceration, swelling Gums: moist, pink, NOT FOUND: swelling Tongue: NOT FOUND: geographic, swelling Teeth: caries, fractures, missing Pharynx: NOT FOUND: erythema, exudate Tonsils: NOT FOUND: erythema, exudate Neck: NOT FOUND: R anterior adenopathy, R posterior adenopathy Skin: NOT FOUND: rash Neurologic RN Documented GCS Eye Opening: Verbal: Motor: Total: Supervisory Exam Head: atraumatic Eyes: PERRL Nares: no exudate Neck: trachea midline Chest: symmetric Abdomen: non-distended Musculoskeletal: no deformity or atrophy Neurological: no abnormal movements Skin: pink, dry Psychological: alert Differential Diagnoses Considering: Gingival Abscess, Caries, Gingivitis, Impacted Tooth, Sinusitis, Tooth Avulsion/Extrusion, Tooth Fracture Procedures Dental Block Procedure Dental Block : Pain Scale Pre: 10 Location: infra-orbital Method: internal approach Anesthetic: 0.5% Bupivicaine Volume of Anesthetic (cc's): 1.8 Pain Scale Post: 0 Progress Results/Orders Orders Medications Current ED Medications Bupivacaine HCl/ Epinephrine Bitart (Marcaine *Dental*) 1.8 ml O ONCE INJ Last administered on 08/31/16 20:12; Start 08/31/16 at 20:15; Stop 08/31/16 at 20:16; Status DC Amoxicillin/ Clavulanate Potassium (Augmentin 875/ 125) 875 mg O ONCE PO Last administered on 08/31/16 20:38; Start 08/31/16 at 20:15; Stop 08/31/16 at 20:16 ; Status DC Acetaminophen/ Hydrocodone Bitart (NORCO 5 (PrePack)) 1 pack O ONCE SENT HOME Last administered on 08/31/16 20:38; Start 08/31/16 at 20:15; Stop 08/31/16 at 20:16; Status DC Progress Progress Provided pt with dental block, providing immediate relief of pain. Will give atbx and short course of pain meds for breakthrough pain. Follow up with dentist for definitive care. Pt voiced understanding of dx, prognosis, tx, and need for f/u. MAYELIN LOPEZ DO Aug 31, 2016 20:06 Last administered on 08/31/16t 20:12; Start 08/31/16 at 20:15; Stop 08/31/16 at 20:16; Status DC Amoxicillin/ Clavulanate Potassium (Augmentin 875/ 125) 875 mg O ONCE PO ; Start 08/31/16 at 20:15; Stop 08/31/16 at 20:16; Status DC Acetaminophen/ Hydrocodone Bitart (NORCO 5 (PrePack)) 1 pack O ONCE SENT HOME ; Start 08/31/16 at 20:15; Stop 08/31/16 at 20:16; Status DC Progress Progress Provided pt with dental block, providing immediate relief of pain. Will give atbx and short course of pain meds for breakthrough pain. Follow up with dentist for definitive care. Pt voiced understanding. MAYELIN LOPEZ DO Aug 31, 2016 20:06
[2016-08-31] MEDS ORDERED: HYDROCODONE/APAP 5/325 (PrePack) SENT HOME ONE (20:15)
[2016-08-31] MEDS ORDERED: BUPIVACAINE 0.5%/EPI 1:200K *DENTAL* 1.8ml SYRINGE INJ ONE (20:15)
[2016-08-31] MEDS ORDERED: AMOX-351 PO (20:15)
[2016-08-31] MEDS ORDERED: AMOXICILLIN/CLAVULANATE 875 MG/125 MG TABLET PO ONE (20:15)
[2016-08-31 20:39] VITALS: BP 104/68; PULSE 87; RESP 18; TEMP 97.5; O2SAT 96
--- NOTE | 2016-08-31 20:39 | NUR ---
DISCHARGE WRITTEN INSTRUCTIONS WITH [facility] AND NORCO PREPACK REVIEWED AND SENT WITH PT. PT VERBALIZES UNDERSTANDING OF DI AND MEDICATIONS, DENIES QUESTIONS. STATES "I'M NUMB SO I'M GOOD" WHEN RE-ASSESSING PAIN. PT AMBULATES OUT OF ER WITH STEADY GAIT ACCOMP BY SO AT THIS TIME.
== END 2016-08-31 20:39 | disposition home or self-care (01) ==
LOC: ED 19:13
DX: S02.5XXB Fracture of tooth (traumatic), initial encounter for open fracture (principal); X58.XXXA Exposure to other specified factors, initial encounter; Y93.9 Activity, unspecified; Y92.009 Unspecified place in unspecified non-institutional (private) residence as the place of occurrence of the external cause; Y99.8 Other external cause status
CPT/HCPCS: 64400; 99283; S0020